=== PATIENT | female | born 1980 | race Caucasian/White ===

== ENCOUNTER 2016-08-06 21:21 | Emergency (ER) | payer OTHER ==
[~2016-08-06] VITALS: Ht 165.1 cm; Wt 164.2 kg
[~2016-08-06 21:21] MED LIST: ALBU1AER9 INH; BUSP15TA70 PO; CALC500C70 PO; CHOL20009 PO; CYCL10TA6 PO; DICL1GEL28 TOP; FLUO20CA35 PO; IMT50 PO; INDSR/60 PO; LORA-741 PO; MAGN400T6 PO; MELA3TAB12 PO; MELO7.5T5 PO; SOLI10TA2 PO; WLLXL300 PO
[2016-08-06 21:31] VITALS: TEMP 37.1; Ht 165.1 cm; Wt 164.2 kg
[2016-08-06] MEDS ORDERED: ALBUTEROL 0.5% NEB SOLN 2.5 MG/0.5 ML VIAL INH ONE (21:53)
[2016-08-06] MEDS ORDERED: ALBUT/IPRATROP 3MG/0.5MG NEB 3 ML VIAL ONE (21:54)
[2016-08-06] MEDS ORDERED: METHYLPREDNISOLONE 125 MG VIAL IV STA (22:10)
--- NOTE | 2016-08-06 22:21 | DIAGNOSTIC IMAGING REPORT ---
CHEST ONE VIEW PORTABLE CLINICAL HISTORY: Shortness of breath. COMPARISON STUDY: Chest radiograph February 23, 2009 FINDINGS: This study is mildly compromised by suboptimal penetration. Cardiac size is at the upper limits of normal. There is no pneumothorax or pleural effusion. The lungs are clear and pulmonary vascularity is normal. IMPRESSION: No acute cardiopulmonary findings. Electronically signed by: Amaury Braswell M.D. 08/06/2016 10:19 PM Dictated Date/Time: 08/06/2016 10:18 PM
[2016-08-06] MEDS ORDERED: IMT100 PO (22:29)
[2016-08-06] MEDS ORDERED: GABA1CAP4 PO (22:29)
[2016-08-06] MEDS ORDERED: BSP/5 PO (22:29)
[2016-08-06] MEDS ORDERED: AMT25 PO (22:29)
[2016-08-06] MEDS ORDERED: FLX10 PO (22:29)
[2016-08-06] MEDS ORDERED: ZPAK PO (22:29)
[2016-08-06] MEDS ORDERED: VNTHFA/IN INH (22:29)
[2016-08-06] MEDS ORDERED: PROP60CA PO (22:29)
[2016-08-06] MEDS ORDERED: ATV/1 SL (22:33)
[2016-08-06] MEDS ORDERED: CALC-585 PO (22:35)
[2016-08-06] MEDS ORDERED: B COCAP3 PO (22:35)
[2016-08-06] MEDS ORDERED: MAGN500T22 PO (22:35)
[2016-08-06] MEDS ORDERED: DOCU-94 PO (22:35)
[2016-08-06] MEDS ORDERED: OXYC1TAB3 PO (22:39)
[2016-08-06] MEDS ORDERED: IBUP-1428 PO (22:39)
[2016-08-06] MEDS ORDERED: GUAI1TAB55 PO (22:39)
[2016-08-06] MEDS ORDERED: POLY335019 PO (22:39)
[2016-08-06 22:48] LABS: HEMATOCRIT 37.5 % (37-47); MEAN CELL VOLUME 88.4 fL (80-100); MEAN CORPUSCULAR HEMOGLOBIN 28.8 pg (25-34); MEAN CORPUSCULAR HGB CONC 32.5 g/dl (32-36); MEAN PLATELET VOLUME 10.4 fL (7.4-10.4); PLATELET COUNT 294 K/uL (130-400); RED BLOOD COUNT 4.24 M/uL (4.2-5.4); WHITE BLOOD COUNT 13.46 K/uL (4.8-10.8)
[2016-08-06 23:07] LABS: BASO % 0.3 %; BASO ABS # 0.04 K/uL (0-0.2); BUN/CREATININE RATIO 15.6 (10-20); CALCIUM 9.2 mg/dl (8.5-10.1); COMPLETE YES; CREATININE 0.71 mg/dl (0.60-1.20); EOS % 2.6 %; IG% 0.3 %; LYMPH % 30.8 %; LYMPH ABS # 4.14 K/uL (1.2-3.4); POTASSIUM 4.1 mmol/L (3.5-5.1)
[2016-08-06] MEDS ORDERED: ALBUT/IPRATROP 3MG/0.5MG NEB 3 ML VIAL INH ONE (23:15)
[2016-08-07] MEDS ORDERED: HYDROCODONE/ACETAMOPHEN 5/325MG TAB PO ONE (01:00)
[2016-08-07] MEDS ORDERED: IBUPROFEN 600 MG TAB PO STA (01:00)
[2016-08-07] MEDS ORDERED: PRED20TA PO ×2 (01:01→01:19)
[2016-08-07 01:23] VITALS: BP 127/75; PULSE 115; O2SAT 97
[2016-08-07] MEDS ORDERED: HYCODAN 60ML BOTTLE HOMEPACK PO ONE (01:30)
--- NOTE | 2016-08-07 05:07 | EMERGENCY ROOM VISIT NOTE ---
History First contact with patient: 22:01 Chief Complaint: SHORTNESS OF BREATH Stated Complaint: SOB, BRONCHITIS Nursing Triage Summary: pt states she has azthma and has been sick recently as her family has been also pt states she has been at the doctors dx with bronchitis but is feeling more sob then she was History of Present Illness The patient is a 36 year old female who presents to the Emergency Room with complaints of coughing and wheezing for the past 5 or 6 days. The patient states that she has a history of asthma and is a smoker. She started having some mild coughing at the onset, but went away over the weekend 3 days ago, and her symptoms significantly worsened. She went to her family doctor's office yesterday, and was started on Zithromax. She has been using albuterol at home with only minimal improvement of symptoms. She states that today she is now having some laryngitis symptoms and more shortness of breath. She feels tight in her chest, which is similar to her previous asthma exacerbations. She does not have a fever or chills. She rates her current discomfort a 6/10. Review of Systems More than 10 systems were reviewed and otherwise negative with the exception of history of present illness. Past Medical/Surgical History Medical Problems: (1) Anxiety (2) Asthma (3) Benign hypertension (4) Depression (5) Herniated lumbar disc (6) Hyperlipidemia (7) IBS (8) Left ovarian cyst (9) Migraines (10) Urinary incontinence (11) [place] Teeth Removal Family History Cancer Social History Smoking Status: Current Every Day Smoker Alcohol Use: occasionally Drug Use: none Marital Status: Housing Status: lives with family Occupation Status: employed Current/Historical Medications Scheduled Amitriptyline HCl (Amitriptyline HCl), 75 MG PO QPM Azithromycin (Azithromycin), 1 TAB PO UD B Complex W/ C (Vitamin B Complex-C), 1 CAP PO QPM Buspirone HCl (Buspirone HCl), 5 MG PO BID Calcium Carbonate-Cholecalcife (Calcium 600 with Vitamin 600-400 mg-Unit), 1 TAB PO QPM Cholecalciferol (Vitamin D), 2,000 INTER.UNIT PO QPM Docusate Sodium (Colace), 100 MG PO BID Gabapentin (Gabapentin), 600 MG PO QPM Magnesium Oxide (mg Supplement (Magnesium Oxide), 500 MG PO QPM Prednisone (Prednisone), 0 PO DAILY Prednisone (Prednisone), 0 PO DAILY Propranolol HCl (Propranolol HCl ER), 60 MG PO QPM Scheduled PRN Albuterol Hfa (Ventolin Hfa), 2 PUFFS INH Q4-6HRS PRN for SOB/Wheezing Cyclobenzaprine HCl (Cyclobenzaprine HCl), 10 MG PO BID PRN for Muscle Spasm Guaifenesin Ext Rel (Mucinex Ext Rel), 1,200 MG PO Q12 PRN for Congestion Ibuprofen (Motrin), 800 MG PO Q8H PRN for Pain Lorazepam (Ativan), 1 MG SL Q4H PRN for Anxiety Oxycodone Immediate Rel Tab (Roxicodone Ir), 5-10 MG PO Q4H PRN for Pain Polyethylene Glycol 3350 (Miralax), 17 GM PO DAILY PRN for Constipation Sumatriptan Succinate (Imitrex), 100 MG PO UD PRN for Migraine Allergies Coded Allergies: Cephalosporins (Verified Allergy, Severe, ANAPHYLACTIC SHOCK, 09/29/15) Diphtheria Toxoid (Verified Allergy, Severe, SWELLING IN THE ARM, CELLULITIS, 09/29/15) Penicillins (Verified Allergy, Severe, ANAPHYLACTIC SHOCK, 09/29/15) Pertussis Vaccine (Verified Allergy, Severe, SWELLING IN ARM, CELLULITIS TO TDAP, 09/29/15) Sulfa Drugs (Verified Allergy, Severe, ANAPHYLACTIC SHOCK, 09/29/15) Tetanus Toxoid (Verified Allergy, Severe, SWELLING IN THE ARM, CELLULITIS , 09/29/15) Ciprofloxacin (Verified Allergy, Mild, HIVES, 09/29/15) STATES ONLY IV CIPRO Physical Exam Vital Signs Date Time Temp Pulse Resp B/P Pulse Ox O2 Delivery O2 Flow Rate FiO2 08/07/16 01:23 115 19 127/75 97 08/07/16 01:10 115 19 127/75 97 Room Air 08/06/16 22:57 90 20 118/78 100 Room Air 08/06/16 21:47 99 Room Air 08/06/16 21:31 37.1 86 20 99/57 97 Room Air Physical Exam VITALS: Vitals are noted on the nurse's note and reviewed by myself. Vital signs stable. GENERAL: Well-developed, well-nourished, white female who is speaking in short sentences. She is audibly wheezing. HEAD: Normocephalic atraumatic. HEART: Regular rate and rhythm without murmurs gallops or rubs. LUNGS: Decreased breath sounds bilateral with scattered wheezing and rhonchi ABDOMEN: Positive normal bowel sounds x 4. Soft, nontender, without masses or organomegaly. No guarding or rebound tenderness. MUSCULOSKELETAL: No muscle atrophy, erythema, or edema noted. Full range of motion without joint tenderness in all extremities. Medical Decision & Procedures ER Provider Diagnostic Interpretation: CHEST ONE VIEW PORTABLE CLINICAL HISTORY: Shortness of breath. COMPARISON STUDY: Chest radiograph February 23, 2009 FINDINGS: This study is mildly compromised by suboptimal penetration. Cardiac size is at the upper limits of normal. There is no pneumothorax or pleural effusion. The lungs are clear and pulmonary vascularity is normal. IMPRESSION: No acute cardiopulmonary findings. Laboratory Results 08/06/16 22:20 Red Blood Count 4.24, Mean Corpuscular Volume 88.4, Mean Corpuscular Hemoglobin 28.8, Mean Corpuscular Hemoglobin Concent 32.5, Mean Platelet Volume 10.4, Neutrophils (%) (Auto) 59.0, Lymphocytes (%) (Auto) 30.8, Monocytes (%) (Auto) 7.0, Eosinophils (%) (Auto) 2.6, Basophils (%) (Auto) 0.3, Neutrophils # (Auto) 7.95, Lymphocytes # (Auto) 4.14, Monocytes # (Auto) 0.94, Eosinophils # (Auto) 0.35, Basophils # (Auto) 0.04 08/06/16 22:20 Test 08/06/16 22:20 08/06/16 22:28 White Blood Count 13.46 K/uL (4.8-10.8) Red Blood Count 4.24 M/uL (4.2-5.4) Hemoglobin 12.2 g/dL (12.0-16.0) Hematocrit 37.5 % (37-47) Mean Corpuscular Volume 88.4 fL (80-100) Mean Corpuscular Hemoglobin 28.8 pg (25-34) Mean Corpuscular Hemoglobin Concent 32.5 g/dl (32-36) Platelet Count 294 K/uL (130-400) Mean Platelet Volume 10.4 fL (7.4-10.4) Neutrophils (%) (Auto) 59.0 % Lymphocytes (%) (Auto) 30.8 % Monocytes (%) (Auto) 7.0 % Eosinophils (%) (Auto) 2.6 % Basophils (%) (Auto) 0.3 % Neutrophils # (Auto) 7.95 K/uL (1.4-6.5) Lymphocytes # (Auto) 4.14 K/uL (1.2-3.4) Monocytes # (Auto) 0.94 K/uL (0.11-0.59) Eosinophils # (Auto) 0.35 K/uL (0-0.5) Basophils # (Auto) 0.04 K/uL (0-0.2) RDW Standard Deviation 45.2 fL (36.4-46.3) RDW Coefficient of Variation 13.9 % (11.5-14.5) Immature Granulocyte % (Auto) 0.3 % Immature Granulocyte # (Auto) 0.04 K/uL (0.00-0.02) Red Blood Cell Morphology Unremarkable Anion Gap 13.0 mmol/L (3-11) Est Creatinine Clear Calc Drug Dose 176.0 ml/min Estimated GFR () 128.8 Estimated GFR (Non- 111.1 BUN/Creatinine Ratio 15.6 (10-20) Calcium Level 9.2 mg/dl (8.5-10.1) Bedside Troponin I 0.000 ng/ml (0-0.045) Medications Administered Medications (Trade) Dose Ordered Sig/Evaristo Route Start Time Stop Time Status Last Admin Dose Admin Albuterol/ Ipratropium (Duoneb) 3 ml STK-MED ONCE .ROUTE 08/06/16 21:54 08/06/16 21:56 DC 08/06/16 21:54 3 ML Methylprednisolone Sodium Succinate (Solu-Medrol IV) 125 mg NOW STAT IV 08/06/16 22:10 08/06/16 22:12 DC 08/06/16 22:30 125 MG Albuterol/ Ipratropium (Duoneb) 12 ml NOW ONCE INH 08/06/16 23:15 08/06/16 23:16 DC 08/06/16 23:38 12 ML Ibuprofen (Motrin Tab) 600 mg NOW STAT PO 08/07/16 01:00 08/07/16 01:01 DC 08/07/16 01:08 600 MG Hydrocodone Bit/ Homatropine Methylb (Hycodan Elix Homepack 5/1.5MG/ 5ML) 1 [facility] UD ONCE PO 08/07/16 01:30 08/07/16 01:31 DC 08/07/16 01:[address] [facility] ED Course Physical exam and history were performed. Nursing notes and EMR were reviewed. Patient appears to have a history of asthma, tobacco use, and recent diagnosis of bronchitis. On exam she does have wheezing and rhonchi. Her lung sounds are overall tight. The patient was started on a DuoNeb. IV access was established and labs were obtained. Chest x-ray was performed. Patient was hydrated with normal saline and given 125 mg IV Solu-Medrol. The patient's blood work is as above and was reviewed. She does have a very slightly elevated white blood cell count. She does not have a significant anemia, bandemia, gross electrolyte imbalance. Chest x-ray does not show acute process. The patient did not have significant relief of symptoms after the initial DuoNeb and steroids, and was given a one-hour DuoNeb. Her troponin did come back as negative. The patient remained in stable and improving condition throughout her emergency department stay. On repeat examination of her lungs, she did significantly improved air exchange. She continued with some wheezing and coarse rhonchi. I do suspect that she has a bronchitis, and she is already on Zithromax. I'm that she continue the Zithromax. She has inhalers at home that she may continue to use. I will provide her a tapering dose of prednisone. I recommended that she follow with her primary care physician in the next few days for recheck of her condition. She was otherwise fairly invited back to the ER with any new, worsening, or concerning symptoms. The chart was completed utilizing [employer] Speech Voice Recognition Software. Grammatical errors, random word insertions, pronoun errors, and incomplete sentences are an occasional consequence of this system due to software limitations, ambient noise, and hardware issues. Any formal questions or concerns about the content, text, or information contained within the body of this dictation should be directly addressed to the provider for clarification. . Medical Decision Differential diagnosis: Etiologies such as infections, reactive airway disease, pneumonia, pneumothorax , COPD, CHF, cardiac ischemia, pulmonary embolism, musculoskeletal, gastrointestinal, as well as others were entertained. Impression Primary Impression: Acute bronchitis Departure Information Prescriptions Prednisone (Prednisone) 20 Mg Tab 0 PO DAILY, #18 TAB 3 DAILY FOR 3 DAYS, THEN 2 DAILY FOR 3 DAYS, THEN 1 DAILY FOR 3 DAYS. Prov: Thiago Mccabe PA-C 08/07/16 Prednisone (Prednisone) 20 Mg Tab 0 PO DAILY, #18 TAB 3 DAILY FOR 3 DAYS, THEN 2 DAILY FOR 3 DAYS, THEN 1 DAILY FOR 3 DAYS. Prov: Thiago Mccabe PA-C 08/07/16 Referrals Catrina Braswell M.D. (PCP) Patient Instructions [facility]
== END 2016-08-07 01:27 | disposition home or self-care (01) ==
LOC: C.EDB 21:22
DX: J20.9 Acute bronchitis, unspecified (principal); J45.909 Unspecified asthma, uncomplicated; I10 Essential (primary) hypertension; E78.5 Hyperlipidemia, unspecified; K58.9 Irritable bowel syndrome, unspecified; F17.200 Nicotine dependence, unspecified, uncomplicated

== ENCOUNTER → 2016-10-29 | Outpatient (CLI) | payer OTHER ==
[~2016-10-29] MED LIST changes: -ALBU1AER9 INH; +AMT25 PO; +ATV/1 SL; +B COCAP3 PO; +BSP/5 PO; -BUSP15TA70 PO; +CALC-585 PO; -CALC500C70 PO; +CHOL2000 PO; -CYCL10TA6 PO; -DICL1GEL28 TOP; +DOCU-94 PO; -FLUO20CA35 PO; +FLX10 PO; +FURO20TA PO; +GABA1CAP4 PO; +GUAI1TAB55 PO; +IBUP-1428 PO; +IMT100 PO; -IMT50 PO; -INDSR/60 PO; -LORA-741 PO; -MAGN400T6 PO; +MAGN500T22 PO; -MELA3TAB12 PO; -MELO7.5T5 PO; +OXYC1TAB3 PO; +POLY335019 PO; +PRED20TA PO; +PROP60CA PO; -SOLI10TA2 PO; +VNTHFA/IN INH; -WLLXL300 PO; +ZPAK PO
[2016-10-29 12:00] LABS: HEMATOCRIT 42.4 % (37-47); MEAN CELL VOLUME 90.2 fL (80-100); MEAN CORPUSCULAR HEMOGLOBIN 28.7 pg (25-34); MEAN CORPUSCULAR HGB CONC 31.8 g/dl (32-36); MEAN PLATELET VOLUME 10.4 fL (7.4-10.4); PLATELET COUNT 295 K/uL (130-400); WHITE BLOOD COUNT 9.06 K/uL (4.8-10.8)
[2016-10-29 12:23] LABS: BASO % 0.3 %; BASO ABS # 0.03 K/uL (0-0.2); COMPLETE YES; EOS % 3.2 %; IG% 0.3 %; LYMPH % 37.1 %; LYMPH ABS # 3.36 K/uL (1.2-3.4); MONO % 7.3 %; NEUT % 51.8 %
[2016-10-29 12:42] LABS: ALT/SGPT 52 U/L (12-78); AST/SGOT 25 U/L (15-37); BLOOD UREA NITROGEN 10 mg/dl (7-18); BUN/CREATININE RATIO 12.9 (10-20); CARBON DIOXIDE 29 mmol/L (21-32); CHLORIDE 104 mmol/L (98-107); CREATININE 0.78 mg/dl (0.60-1.20); GLUCOSE 91 mg/dl (70-99); POTASSIUM 4.6 mmol/L (3.5-5.1); SODIUM 139 mmol/L (136-145)
[2016-10-29 12:53] LABS: ALB/GLOB RATIO 0.8 (0.9-2); ALKALINE PHOSPHATASE 125 U/L (45-117)
== END | disposition home or self-care (01) ==
LOC: C.LABBFT 10:50
PROVIDERS: ATTEND Internal Medicine
DX: R60.9 Edema, unspecified (principal); R06.02 Shortness of breath; R07.9 Chest pain, unspecified

== ENCOUNTER → 2016-10-29 | Outpatient (CLI) | payer OTHER ==
[~2016-10-29] MED LIST changes: +OPTIRAY 320 IV PRN
--- NOTE | 2016-10-29 14:50 | DIAGNOSTIC IMAGING REPORT ---
CHEST CTA for PULMONARY ARTERIES CT DOSE: 702.29 mGy.cm HISTORY: Chest pain dyspnea TECHNIQUE: Multiaxial CT images of the chest were performed following the intravenous administration of contrast to evaluate the pulmonary arteries. Maximal intensity projection images were also obtained. COMPARISON STUDY: None. FINDINGS: There is a normal caliber thoracic aorta with no evidence for dissection. There is no evidence for pulmonary embolus. No pleural effusions. No pneumothorax. The liver and spleen are unremarkable. No mediastinal or hilar lymphadenopathy. The central airways are patent. The lungs are clear. IMPRESSION: No evidence for pulmonary embolus. The lungs are clear. Electronically signed by: Doyle Wilson M.D. 10/29/2016 2:48 PM Dictated Date/Time: 10/29/2016 2:46 PM
== END | disposition home or self-care (01) ==
LOC: C.CTS 14:29
PROVIDERS: ATTEND Internal Medicine
DX: R07.9 Chest pain, unspecified (principal); R79.89 Other specified abnormal findings of blood chemistry; R06.02 Shortness of breath

== ENCOUNTER 2016-11-06 17:04 | Emergency (ER) | payer OTHER ==
[~2016-11-06] VITALS: Ht 165.1 cm; Wt 172.0 kg
[~2016-11-06 17:04] MED LIST changes: -CHOL2000 PO; -FURO20TA PO; -OPTIRAY 320 IV PRN
[2016-11-06 17:06] VITALS: TEMP 36.8; Ht 165.1 cm; Wt 172.0 kg
[2016-11-06] MEDS ORDERED: ASPIRIN 81 MG CHEW PO STA (17:20)
[2016-11-06] MEDS ORDERED: FURO20TA PO (17:49)
[2016-11-06] MEDS ORDERED: CHOL2000 PO (17:54)
[2016-11-06 18:13] LABS: BASO % 0.3 %; BASO ABS # 0.04 K/uL (0-0.2); COMPLETE YES; EOS % 2.4 %; HEMATOCRIT 38.2 % (37-47); IG% 0.3 %; LYMPH ABS # 4.47 K/uL (1.2-3.4); MEAN CELL VOLUME 89.5 fL (80-100); MEAN CORPUSCULAR HEMOGLOBIN 29.5 pg (25-34); MEAN PLATELET VOLUME 10.2 fL (7.4-10.4); MONO % 6.4 %; NEUT % 57.6 %; PLATELET COUNT 270 K/uL (130-400); RED BLOOD COUNT 4.27 M/uL (4.2-5.4); WHITE BLOOD COUNT 13.55 K/uL (4.8-10.8)
[2016-11-06 18:26] LABS: INR 0.9 (0.9-1.1); PARTIAL THROMBOPLASTIN RATIO 1.1
[2016-11-06 18:29] LABS: ALT/SGPT 51 U/L (12-78); AST/SGOT 28 U/L (15-37); BLOOD UREA NITROGEN 13 mg/dl (7-18); BUN/CREATININE RATIO 13.7 (10-20); CALCIUM 8.9 mg/dl (8.5-10.1); CARBON DIOXIDE 27 mmol/L (21-32); CHLORIDE 103 mmol/L (98-107); CREATININE 0.93 mg/dl (0.60-1.20); GLUCOSE 116 mg/dl (70-99); POTASSIUM 3.5 mmol/L (3.5-5.1); SODIUM 138 mmol/L (136-145)
[2016-11-06 18:35] LABS: ALKALINE PHOSPHATASE 127 U/L (45-117)
[2016-11-06 18:39] LABS: PREG INTERNAL NEGATIVE QC NEG CLEAR BACKGROUND; PREG INTERNAL POSITIVE QC POS CONTROL LINE
--- NOTE | 2016-11-06 18:57 | DIAGNOSTIC IMAGING REPORT ---
CHEST 2 VIEWS ROUTINE HISTORY: Atypical CHEST PAIN COMPARISON: Chest 08/06/2016. Chest CTA 10/29/2016. FINDINGS: The lungs are clear. Cardiac silhouette is normal in size. No pleural effusions. No pneumothorax. IMPRESSION: No acute process. Electronically signed by: Keshawn Geiger M.D. 11/06/2016 6:55 PM Dictated Date/Time: 11/06/2016 6:54 PM
[2016-11-06] MEDS ORDERED: MoRPHine SULFATE 4 MG/ML 1 ML CARP\\VIAL IV STA (19:31)
--- NOTE | 2016-11-06 20:06 | EMERGENCY ROOM VISIT NOTE ---
History First contact with patient: 17:12 Chief Complaint: CARDIAC ASSESSMENT Stated Complaint: SUDDEN ONSET EDEMA, LEG PAIN, CHEST PAIN,LIGHTHEAD Nursing Triage Summary: Pt presents with stating 1 week ago went to PCP d/t leg edema. D-dimer was 680. Had CT that was neg. Placed on Lasix. Due to echo tomorrow. Came home from work and developed shooting pain in right leg with numbness, b/l leg edema. Midsternal to left sided chest pain that began on the way here, intermittent. Pt states, "It might just be my anxiety." SOB. History of Present Illness The patient is a 36 year old female who presents to the Emergency Room with complaints of chest pain, shortness of breath, bilateral lower extremity swelling. States a week ago that she developed some lower leg swelling, time she was seen by her PCP who did a d-dimer which was elevated. At that time she had this same chest pain, so they did a chest CT study which was negative for PE. Patient states her PCP placed her on Lasix for her leg swelling, which subsequently resolved. She states she has been doing well until today when she became swollen and her legs again with shooting pains in both calves. While she was driving herself to the ER, she began to have midsternal chest pain and shortness of breath, and feeling anxious. She does also remark that her mother from sudden onset of congestive heart failure in her early 50s, and states she is anxious about having the same thing happened to her. She does note that she is scheduled to have an echocardiogram done tomorrow. She denies fevers, chills, neck pain, back pain, abdominal pain, nausea/vomiting, urinary symptoms, dizziness or syncope. Review of Systems GENERAL: Denies fevers, chills, malaise, changes in weight. HEENT: Denies dizziness, visual problems, hearing loss, tinnitus. Denies difficulty swallowing or oral lesions. PULMONARY: +shortness of breath. Denies cough, sputum production or hemoptysis. CARDIOVASCULAR: + Chest pain, lower extremity edema, dyspnea on exertion. Denies palpitations. GASTROINTESTINAL: Denies diarrhea, constipation, nausea, vomiting, or abdominal pain. GENITOURINARY: Denies dysuria, frequency, urgency or nocturia. NEUROLOGIC: Denies history of epilepsy, CVA, TIA or chronic headaches. MUSCULOSKELETAL: Denies history of joint tenderness/swelling. SKIN: Denies rashes or lesions. PSYCHIATRIC: Denies history of depression or mental illness. ENDOCRINE: Denies history of diabetes, thyroid disorders, abnormal hair growth or sexual dysfunction. Past Medical/Surgical History Medical Problems: (1) Anxiety (2) Asthma (3) Benign hypertension (4) Depression (5) Herniated lumbar disc (6) Hyperlipidemia (7) IBS (8) Left ovarian cyst (9) Migraines (10) Urinary incontinence (11) [place] Teeth Removal Family History Cancer Social History Smoking Status: Current Every Day Smoker Alcohol Use: occasionally Drug Use: none Marital Status: Housing Status: lives with family Occupation Status: employed Current/Historical Medications Scheduled Amitriptyline HCl (Amitriptyline HCl), 75 MG PO QPM B Complex W/ C (Vitamin B Complex-C), 1 CAP PO QPM Buspirone HCl (Buspirone HCl), 5 MG PO BID Calcium Carbonate-Cholecalcife (Calcium 600 with Vitamin 600-400 mg-Unit), 1 TAB PO QPM Cholecalciferol (Vitamin D3), 1 CAP PO DAILY Cyclobenzaprine HCl (Cyclobenzaprine HCl), 10 MG PO BID Docusate Sodium (Colace), 100 MG PO BID Furosemide (Lasix), 20 MG PO DAILY Gabapentin (Gabapentin), 600 MG PO QPM Magnesium Oxide (mg Supplement (Magnesium Oxide), 500 MG PO QPM Propranolol HCl (Propranolol HCl ER), 60 MG PO QPM Scheduled PRN Albuterol Hfa (Ventolin Hfa), 2 PUFFS INH Q4-6HRS PRN for SOB/Wheezing Guaifenesin Ext Rel (Mucinex Ext Rel), 1,200 MG PO Q12 PRN for Congestion Ibuprofen (Motrin), 800 MG PO Q8H PRN for Pain Lorazepam (Ativan), 1 MG SL Q4H PRN for Anxiety Oxycodone Immediate Rel Tab (Roxicodone Ir), 5-10 MG PO Q4H PRN for Pain Polyethylene Glycol 3350 (Miralax), 17 GM PO DAILY PRN for Constipation Sumatriptan Succinate (Imitrex), 100 MG PO UD PRN for Migraine Allergies Coded Allergies: Cephalosporins (Verified Allergy, Severe, ANAPHYLACTIC SHOCK, 11/06/16) Diphtheria Toxoid (Verified Allergy, Severe, SWELLING IN THE ARM, CELLULITIS, 11/06/16) Penicillins (Verified Allergy, Severe, ANAPHYLACTIC SHOCK, 11/06/16) Pertussis Vaccine (Verified Allergy, Severe, SWELLING IN ARM, CELLULITIS TO TDAP, 11/06/16) Sulfa Drugs (Verified Allergy, Severe, ANAPHYLACTIC SHOCK, 11/06/16) Tetanus Toxoid (Verified Allergy, Severe, SWELLING IN THE ARM, CELLULITIS , 11/06/16) Ciprofloxacin (Verified Allergy, Mild, HIVES, 11/06/16) STATES ONLY IV CIPRO Physical Exam Vital Signs Date Time Temp Pulse Resp B/P Pulse Ox O2 Delivery O2 Flow Rate FiO2 11/06/16 21:15 114 18 112/79 97 Room Air 11/06/16 19:18 106 18 116/86 96 11/06/16 18:39 108 11/06/16 18:24 Room Air 11/06/16 18:24 Room Air 11/06/16 17:06 36.8 121 24 156/78 97 Room Air Physical Exam CONSTITUTIONAL: Anxious, mild distress with tachypnea. Alert and oriented X 4. HEENT: Normocephalic, atraumatic. Pupils equal, round and reactive to light, EOMI. NECK: Supple, full active range of motion without discomfort. RESPIRATORY: Slightly tachypneic with respiratory rate 24-26 breaths per minute. Clear to auscultation bilaterally with no wheezing, crackles, rhonchi or stridor. Diminished lung sounds bilateral bases. Equal expansion bilaterally. CARDIOVASCULAR: Tachycardia initial heart rate of 120 bpm. Regular rhythm with no murmurs, rubs or gallops. Normal peripheral perfusion. Bilateral lower extremity edema, 2+, nonpitting. GASTROINTESTINAL: Soft, nontender, nondistended. Morbidly obese. Bowel sounds present in all quadrants. MUSCULOSKELETAL: Full range of motion of all joints without discomfort. No posterior calf tenderness. No erythema, no warmth, or crepitus. INTEGUMENTARY: No rash or other significant dermatologic conditions noted. NEUROLOGIC: Cranial nerves II-XII grossly intact. No focal neurologic deficits noted. Medical Decision & Procedures ER Provider Diagnostic Interpretation: CHEST 2 VIEWS ROUTINE HISTORY: Atypical CHEST PAIN COMPARISON: Chest 08/06/2016. Chest CTA 10/29/2016. FINDINGS: The lungs are clear. Cardiac silhouette is normal in size. No pleural effusions. No pneumothorax. IMPRESSION: No acute process. BILATERAL LOWER EXTREMITY VENOUS DOPPLER HISTORY: bilateral leg swelling, elevated dimer, eval DVT COMPARISON STUDY: None. FINDINGS: There is normal compressibility, flow, and augmentation within the bilateral lower extremity deep venous systems. IMPRESSION: No DVT within the right or left lower extremity. Laboratory Results 11/06/16 17:55 Red Blood Count 4.27, Mean Corpuscular Volume 89.5, Mean Corpuscular Hemoglobin 29.5, Mean Corpuscular Hemoglobin Concent 33.0, Mean Platelet Volume 10.2, Neutrophils (%) (Auto) 57.6, Lymphocytes (%) (Auto) 33.0, Monocytes (%) (Auto) 6.4, Eosinophils (%) (Auto) 2.4, Basophils (%) (Auto) 0.3, Neutrophils # (Auto) 7.81, Lymphocytes # (Auto) 4.47, Monocytes # (Auto) 0.87, Eosinophils # (Auto) 0.32, Basophils # (Auto) 0.04 11/06/16 17:55 Test 11/06/16 17:55 White Blood Count 13.55 K/uL (4.8-10.8) Red Blood Count 4.27 M/uL (4.2-5.4) Hemoglobin 12.6 g/dL (12.0-16.0) Hematocrit 38.2 % (37-47) Mean Corpuscular Volume 89.5 fL (80-100) Mean Corpuscular Hemoglobin 29.5 pg (25-34) Mean Corpuscular Hemoglobin Concent 33.0 g/dl (32-36) Platelet Count 270 K/uL (130-400) Mean Platelet Volume 10.2 fL (7.4-10.4) Neutrophils (%) (Auto) 57.6 % Lymphocytes (%) (Auto) 33.0 % Monocytes (%) (Auto) 6.4 % Eosinophils (%) (Auto) 2.4 % Basophils (%) (Auto) 0.3 % Neutrophils # (Auto) 7.81 K/uL (1.4-6.5) Lymphocytes # (Auto) 4.47 K/uL (1.2-3.4) Monocytes # (Auto) 0.87 K/uL (0.11-0.59) Eosinophils # (Auto) 0.32 K/uL (0-0.5) Basophils # (Auto) 0.04 K/uL (0-0.2) RDW Standard Deviation 47.5 fL (36.4-46.3) RDW Coefficient of Variation 14.6 % (11.5-14.5) Immature Granulocyte % (Auto) 0.3 % Immature Granulocyte # (Auto) 0.04 K/uL (0.00-0.02) Prothrombin Time 10.0 SECONDS (9.0-12.0) Prothromb Time International Ratio 0.9 (0.9-1.1) Activated Partial Thromboplast Time 28.5 SECONDS (21.0-31.0) Partial Thromboplastin Ratio 1.1 Anion Gap 8.0 mmol/L (3-11) Est Creatinine Clear Calc Drug Dose 138.6 ml/min Estimated GFR () 92.9 Estimated GFR (Non- 80.2 BUN/Creatinine Ratio 13.7 (10-20) Calcium Level 8.9 mg/dl (8.5-10.1) Total Bilirubin 0.3 mg/dl (0.2-1) Direct Bilirubin < 0.1 mg/dl (0-0.2) Aspartate Amino Transf (AST/SGOT) 28 U/L (15-37) Alanine Aminotransferase (ALT/SGPT) 51 U/L (12-78) Alkaline Phosphatase 127 U/L (45-117) Troponin I < 0.015 ng/ml (0-0.045) Pro-B-Type Natriuretic Peptide 43 pg/ml (0-450) Total Protein 7.4 gm/dl (6.4-8.2) Albumin 3.3 gm/dl (3.4-5.0) Human Chorionic Gonadotropin, Qual NEG (NEG) Medications Administered Medications (Trade) Dose Ordered Sig/Evaristo Route Start Time Stop Time Status Last Admin Dose Admin Aspirin (Aspirin Chew) 81 mg NOW STAT PO 11/06/16 17:20 11/06/16 17:29 DC 11/06/16 18:21 81 MG Morphine Sulfate (MoRPHine SULFATE INJ) 4 mg NOW STAT IV 11/06/16 19:31 11/06/16 19:33 DC 4/26/17 20:00 4 MG Ketorolac Tromethamine (Toradol Inj) 15 mg NOW STAT IV 11/06/16 22:14 11/06/16 22:17 DC 11/06/16 22:29 15 MG ED Course Patient initial complaint on arrival of chest pain, shortness of breath, and leg swelling that started suddenly today, stating a concern for congestive heart failure. She does also state concern because she believes her mother of sudden congestive heart failure. On initial exam patient does admit to having anxiety and wonders if her symptoms can be from this. She does not complain of leg pain, and does not have calf tenderness on exam. Patient reassessed after workup complete, informed of negative EKG, troponin and BNP, and chest x-ray, all of which points away from any diagnosis of acute congestive heart failure. Pain also improved with morphine, and patient states her chest pain and shortness of breath are not bothering her now. At this point , patient states "the only reason I am here is because of the swelling and pain in my legs. That's why my PCP sent me here to figure out why I'm having swelling and pain in my legs." I discussed the option of doing venous duplex of her leg to rule out DVT, patient states she would like to have this done. Patient again reassessed after venous duplex completed, no DVT found on study. I explained to patient that, given her negative workup, she would be discharged home with plans to continue following up with her PCP, especially to keep her appointment tomorrow morning for echocardiogram. Patient states she is uncomfortable with being discharged home because she "wants to know why her legs are swelling like this." She also states "the pain in my legs is so bad that I cannot even walk." Patient requesting a second opinion. Discussed with Dr. Trivedi, who recommends consulting Hospitalist to evaluate the patient. Discussed with Dr. Barrow, who agrees to see the patient. Patient and updated on plan for hospitalist to evaluate. They state they would now like to be discharged home. I again discussed instructions and follow-up plan, as well as return criteria with the patient and her , they verbalized understanding. Pt noted to ambulate without difficulty. Medical Decision Morbidly obese patient with bilateral lower extremity swelling, nonpitting edema , seems more consistent with lymphedema. Her chest pain and shortness of breath are resolved, EKG, chest x-ray, and lab work are unremarkable and no suggestion of acute congestive heart failure. Venous duplex is negative for DVT. Patient is scheduled tomorrow for echocardiogram, which she was encouraged to keep. She was also encouraged to continue following closely with her PCP. Impression Primary Impression: Bilateral lower extremity edema Departure Information Dispostion Home / Self-Care Condition GOOD Referrals Catrina Braswell M.D. (PCP) Patient Instructions ED Leg Swelling Bilateral, [facility] Additional Instructions Follow-up with your PCP. Keep your scheduled appointment tomorrow for your echocardiogram. Continue to take your Lasix as prescribed for the swelling. You may take Tylenol or ibuprofen as needed for pain. Try to elevate your legs as much as possible throughout the day and when you're sleeping at night to help reduce swelling in your legs. Please return to the ER for worsening symptoms, including severe chest pain, shortness of breath, dizziness or passing out, fever/chills, redness or increase swelling/pain in your legs, or any other concerns.
--- NOTE | 2016-11-06 20:54 | DIAGNOSTIC IMAGING REPORT ---
BILATERAL LOWER EXTREMITY VENOUS DOPPLER HISTORY: bilateral leg swelling, elevated dimer, eval DVT COMPARISON STUDY: None. FINDINGS: There is normal compressibility, flow, and augmentation within the bilateral lower extremity deep venous systems. IMPRESSION: No DVT within the right or left lower extremity. Electronically signed by: Keshawn Geiger M.D. 11/06/2016 8:52 PM Dictated Date/Time: 11/06/2016 8:52 PM
[2016-11-06] MEDS ORDERED: KETOROLAC TROMETHAMINE 30 MG/ML VIAL IV STA (22:14)
[2016-11-06 23:03] VITALS: BP 117/68; PULSE 78; O2SAT 94
== END 2016-11-06 23:03 | disposition home or self-care (01) ==
LOC: C.EDB 17:04 → C.EDA 23:03
DX: R60.0 Localized edema (principal); F41.9 Anxiety disorder, unspecified; J45.909 Unspecified asthma, uncomplicated; I10 Essential (primary) hypertension; F32.9 Major depressive disorder, single episode, unspecified; E78.5 Hyperlipidemia, unspecified; M51.26 Other intervertebral disc displacement, lumbar region; K58.9 Irritable bowel syndrome, unspecified; F17.200 Nicotine dependence, unspecified, uncomplicated

== ENCOUNTER → 2017-07-01 | Outpatient (CLI) | payer OTHER ==
[~2017-07-01] VITALS: Ht 165.1 cm; Wt 164.9 kg
[~2017-07-01] MED LIST changes: +CHOL2000 PO; -CHOL20009 PO; +FURO20TA PO; -PRED20TA PO; -ZPAK PO
[2017-07-01 13:17] VITALS: BP 112/73; PULSE 114; Ht 165.1 cm; Wt 164.9 kg
== END | disposition home or self-care (01) ==
LOC: C.NEUR 12:47
PROVIDERS: ATTEND Internal Medicine Pulmonary Disease
DX: G47.33 Obstructive sleep apnea (adult) (pediatric) (principal); E66.01 Morbid (severe) obesity due to excess calories; R53.82 Chronic fatigue, unspecified; G47.19 Other hypersomnia; Z68.44 Body mass index [BMI] 60.0-69.9, adult

== ENCOUNTER 2017-07-25 11:04 | Inpatient (IN) | payer OTHER ==
[~2017-07-25] VITALS: Ht 165.1 cm; Wt 167.0 kg
[~2017-07-25 11:04] MED LIST changes: +DOXY1TAB6 PO
[2017-07-25] MEDS ORDERED: METHYLPREDNISOLONE 125 MG VIAL IV STA (11:29)
[2017-07-25] MEDS ORDERED: ALBUT/IPRATROP 3MG/0.5MG NEB 3 ML VIAL INH ONE (11:30)
--- NOTE | 2017-07-25 11:36 | EMERGENCY ROOM VISIT NOTE ---
History Report prepared by Rachelle: Joanie Moran Under the Supervision of: Dr. Blanco Lindsay D.O. First contact with patient: 11:23 Chief Complaint: SHORTNESS OF BREATH Stated Complaint: CAN'T BREATH, COUGHING, LIGHTHEADED Nursing Triage Summary: pt to the ED with c/o cough and SOB since last night getting worse History of Present Illness The patient is a 37 year old female who presents to the Emergency Room with complaints of persistent shortness of breath that began last night, about 12 hours ago. The patient states that she has a cold that began one week ago and chest pain that began 3 days ago. She states that she woke up several times throughout the night unable to breath. She notes she took albuterol, which did not help relieve her symptoms. The patient states she saw her PCP today, who gave her an albuterol nebulizer and suggested she come to the Emergency Department for further evaluation. She denies any leg swelling, fevers, or history of blood clots. The patient states her last normal menstrual period was 3 weeks ago. Source of History: patient Onset: last night, 12 hours Position: other (global) Quality: other (shortness of breath) Associated Symptoms: + chest pain, No fevers Review of Systems See HPI for pertinent positives & negatives. A total of 10 systems reviewed and were otherwise negative. Past Medical & Surgical Medical Problems: (1) Anxiety (2) Asthma (3) Asthma exacerbation (4) Benign hypertension (5) Depression (6) Herniated lumbar disc (7) Hyperlipidemia (8) IBS (9) Left ovarian cyst (10) Migraines (11) Urinary incontinence (12) Sleepy Eye Teeth Removal Family History Cancer Social History Smoking Status: Current Every Day Smoker Alcohol Use: occasionally Drug Use: none Marital Status: Housing Status: lives with family Occupation Status: employed Current/Historical Medications Scheduled Amitriptyline HCl (Amitriptyline HCl), 25 MG PO QPM B Complex W/ C (Vitamin B Complex-C), 1 CAP PO QPM Cholecalciferol (Vitamin D3), 2,000 UNITS PO DAILY Doxycycline Hyclate (Doxycycline Hyclate), 1 TAB PO BID Magnesium Oxide (mg Supplement (Magnesium Oxide), 500 MG PO QPM Scheduled PRN Albuterol Hfa (Ventolin Hfa), 2 PUFFS INH Q4-6HRS PRN for SOB/Wheezing Ibuprofen (Motrin), 800 MG PO Q8H PRN for Pain Polyethylene Glycol 3350 (Miralax), 17 GM PO DAILY PRN for Constipation Sumatriptan Succinate (Imitrex), 100 MG PO UD PRN for Migraine Allergies Coded Allergies: Cephalosporins (Verified Allergy, Severe, ANAPHYLACTIC SHOCK, 07/25/17) Diphtheria Toxoid (Verified Allergy, Severe, SWELLING IN THE ARM, CELLULITIS, 07/25/17) Penicillins (Verified Allergy, Severe, ANAPHYLACTIC SHOCK, 07/25/17) Pertussis Vaccine (Verified Allergy, Severe, SWELLING IN ARM, CELLULITIS TO TDAP, 07/25/17) Sulfa Antibiotics (Verified Allergy, Severe, ANAPHYLACTIC SHOCK, 07/25/17) Tetanus Toxoid (Verified Allergy, Severe, SWELLING IN THE ARM, CELLULITIS , 07/25/17) Ciprofloxacin (Verified Allergy, Mild, HIVES, 07/25/17) STATES ONLY IV CIPRO Midazolam (Unverified Allergy, Unknown, STOPPED BREATHING, 07/25/17) Physical Exam Vital Signs Date Time Temp Pulse Resp B/P (MAP) Pulse Ox O2 Delivery O2 Flow Rate FiO2 07/25/17 18:39 128 96/40 96 07/25/17 17:29 131 27 104/41 93 Room Air 07/25/17 15:34 126 22 105/41 93 Room Air 07/25/17 15:18 128 20 90/34 93 Room Air 07/25/17 13:03 126 129/75 94 Room Air 07/25/17 12:08 123 100 Nebulizer 10.0 07/25/17 12:03 119 07/25/17 12:02 115 28 100 Room Air 07/25/17 11:58 96 Room Air 07/25/17 11:13 37.0 126 22 127/82 96 Physical Exam GENERAL: Patient is awake, alert, and in no acute distress. Patient is resting comfortably and showing no signs of anxiety EYES: The conjunctivae are clear. The pupils are round and reactive. EARS, NOSE, MOUTH AND THROAT: The nose is without any evidence of any deformity. Mucous membranes are moist tongue is midline NECK: The neck is nontender and supple. RESPIRATORY: Diminished breath sounds, wheezing, and significant tachypnea. CARDIOVASCULAR: Tachycardic rate but regular rhythm. No murmurs to auscultation. GASTROINTESTINAL: The abdomen is soft. Bowel sounds are present in all quadrants. Abdomen is nontender PELVIS: The Pelvis is stable. No tenderness to palpation is noted. BACK: No midline tenderness or or step-off noted range of motion in flexion extension as well as rotation no signs of muscle spasm noted MUSCULOSKELETAL/EXTREMITIES: There is no evidence of gross deformity full range of motion is noted in the hips and shoulders SKIN: There is no obvious evidence of any rash. There are no petechiae, pallor or cyanosis noted. NEUROLOGIC: Patient is awake alert and oriented x3 strength is symmetric patellar reflexes are 2+ bilaterally Medical Decision & Procedures ER Provider Diagnostic Interpretation: Radiology results as stated below per my review and radiologist interpretation: (CHEST FOR PE) ANGIO WITH CT DOSE: 574.63 mGy.cm HISTORY: Chest pain dyspnea TECHNIQUE: Multiaxial CT images of the chest were performed following the intravenous administration of contrast to evaluate the pulmonary arteries. Maximal intensity projection images were also obtained. A dose lowering technique was utilized adhering to the principles of ALARA. COMPARISON STUDY: 10/29/2016 FINDINGS: Compromised exam due to patient body habitus, subsequent lack of resolution, and moderate patient motion. Thoracic aorta is normal in course and caliber. Central pulmonary vasculature enhances appropriately. There are no major central pulmonary emboli. The third order peripheral vasculature is suboptimally identified and is essentially nondiagnostic. Lungs are considered clear. There are no focal infiltrative changes. No evidence for pneumothorax. IMPRESSION: 1. No evidence for a major or central pulmonary embolus. 2. Lungs are clear. 3. The peripheral pulmonary vasculature is suboptimally seen due to patient body habitus and somatic motion considerations. The above report was generated using voice recognition software. It may contain grammatical, syntax or spelling errors. Electronically signed by: Doyle Wilson M.D. 07/25/2017 2:01 PM Dictated Date/Time: 07/25/2017 1:56 PM CHEST ONE VIEW PORTABLE CLINICAL HISTORY: EVALUATE RESPIRATORY DISTRESS.DYSPNEA COMPARISON STUDY: Chest CT October 29, 2016 and chest radiograph November 06, 2016. FINDINGS: Lung volumes are normal. There is no pneumothorax or pleural effusion. Interstitial prominence is unchanged. Cardiomediastinal silhouette is stable. There is no evidence for pulmonary edema. IMPRESSION: No acute cardiopulmonary findings. No change in appearance of the chest. Electronically signed by: Amaury Braswell M.D. 07/25/2017 12:13 PM Dictated Date/Time: 07/25/2017 12:12 PM Laboratory Results 07/25/17 11:55 Red Blood Count 4.54, Mean Corpuscular Volume 88.5, Mean Corpuscular Hemoglobin 28.2, Mean Corpuscular Hemoglobin Concent 31.8, Mean Platelet Volume 10.2, Neutrophils (%) (Auto) 67.3, Lymphocytes (%) (Auto) 22.2, Monocytes (%) (Auto) 7.6, Eosinophils (%) (Auto) 2.0, Basophils (%) (Auto) 0.3, Neutrophils # (Auto) 5.86, Lymphocytes # (Auto) 1.93, Monocytes # (Auto) 0.66, Eosinophils # (Auto) 0.17, Basophils # (Auto) 0.03 07/25/17 11:55 Test 07/25/17 11:55 07/25/17 12:00 White Blood Count 8.70 K/uL (4.8-10.8) Red Blood Count 4.54 M/uL (4.2-5.4) Hemoglobin 12.8 g/dL (12.0-16.0) Hematocrit 40.2 % (37-47) Mean Corpuscular Volume 88.5 fL (80-100) Mean Corpuscular Hemoglobin 28.2 pg (25-34) Mean Corpuscular Hemoglobin Concent 31.8 g/dl (32-36) Platelet Count 312 K/uL (130-400) Mean Platelet Volume 10.2 fL (7.4-10.4) Neutrophils (%) (Auto) 67.3 % Lymphocytes (%) (Auto) 22.2 % Monocytes (%) (Auto) 7.6 % Eosinophils (%) (Auto) 2.0 % Basophils (%) (Auto) 0.3 % Neutrophils # (Auto) 5.86 K/uL (1.4-6.5) Lymphocytes # (Auto) 1.93 K/uL (1.2-3.4) Monocytes # (Auto) 0.66 K/uL (0.11-0.59) Eosinophils # (Auto) 0.17 K/uL (0-0.5) Basophils # (Auto) 0.03 K/uL (0-0.2) RDW Standard Deviation 47.9 fL (36.4-46.3) RDW Coefficient of Variation 14.8 % (11.5-14.5) Immature Granulocyte % (Auto) 0.6 % Immature Granulocyte # (Auto) 0.05 K/uL (0.00-0.02) Prothrombin Time 10.0 SECONDS (9.0-12.0) Prothromb Time International Ratio 1.0 (0.9-1.1) Activated Partial Thromboplast Time 28.5 SECONDS (21.0-31.0) Partial Thromboplastin Ratio 1.1 Anion Gap 8.0 mmol/L (3-11) Est Creatinine Clear Calc Drug Dose 148.5 ml/min Estimated GFR () 104.4 Estimated GFR (Non- 90.0 BUN/Creatinine Ratio 15.1 (10-20) Calcium Level 9.1 mg/dl (8.5-10.1) Total Bilirubin 0.3 mg/dl (0.2-1) Aspartate Amino Transf (AST/SGOT) 31 U/L (15-37) Alanine Aminotransferase (ALT/SGPT) 56 U/L (12-78) Alkaline Phosphatase 130 U/L (45-117) Troponin I < 0.015 ng/ml (0-0.045) Total Protein 7.8 gm/dl (6.4-8.2) Albumin 3.3 gm/dl (3.4-5.0) Globulin 4.5 gm/dl (2.5-4.0) Albumin/Globulin Ratio 0.7 (0.9-2) Human Chorionic Gonadotropin, Qual NEG (NEG) Bedside D-Dimer > 450 ng/mlFEU (0-450) Laboratory results per my review. Medications Administered Medications (Trade) Dose Ordered Sig/Evaristo Route Start Time Stop Time Status Last Admin Dose Admin Albuterol/ Ipratropium (Duoneb) 12 ml ONE ONCE INH 07/25/17 11:30 07/25/17 11:31 DC 07/25/17 12:02 12 ML Methylprednisolone Sodium Succinate (Solu-Medrol IV) 125 mg NOW STAT IV 07/25/17 11:29 07/25/17 11:31 DC 07/25/17 12:06 125 MG Sodium Chloride 1,000 ml @ 999 mls/hr Q1H1M STAT IV 07/25/17 12:55 07/25/17 13:55 DC 07/25/17 12:55 999 MLS/HR Azithromycin (Zithromax Tab) 500 mg NOW STAT PO 07/25/17 15:53 07/25/17 15:54 DC 07/25/17 16:06 500 MG Albuterol/ Ipratropium (Duoneb) 3 ml NOW STAT INH 07/25/17 16:03 07/25/17 16:04 DC 07/25/17 16:08 3 ML Magnesium Sulfate 1 gm/Prmx 100 ml @ 100 mls/hr Q1H IV 07/25/17 17:15 07/25/17 19:14 07/25/17 18:34 100 MLS/HR Ibuprofen (Motrin Tab) 800 mg NOW ONCE PO 07/25/17 17:15 07/25/17 17:16 DC 07/25/17 17:19 800 MG ECG Indication: SOB/dyspnea Rate (beats per minute): 121 Rhythm: sinus tachycardia Findings: no acute ischemic change, no ectopy Change: no significant change (11/06/16) ED Course 1128: The patient was evaluated in room C11. A complete history and physical examination were performed. 1129: Ordered Solu-Medrol IV 125mg. 1130: Ordered Duoneb 12ml INH. 1255: Ordered Sodium Chloride 1000ml @ 999mls/hr IV. 1312: I reevaluated the patient, who was resting comfortably. 1428: Upon reevaluation, the patient is resting comfortably. I discussed the results and treatment plan with her. Medical Decision Prior records/ancillary studies reviewed. Triage Nursing notes reviewed. The patient's history was concerning for respiratory difficulties. Differential diagnosis: Etiologies such as infections, reactive airway disease, pneumonia, pneumothorax , COPD, CHF, cardiac ischemia, pulmonary embolism, musculoskeletal, gastrointestinal, as well as others were entertained. The patient is a 37-year-old female who presented to the emergency department from her primary care physician's office for treatment. The patient's been having a cough and also has a history of bronchospasm. The patient was having significant tachypnea upon arrival. She was treated with an hour-long nebulizer and IV steroids. Her condition did not improve significantly. I discussed the patient's laboratory and radiographic studies with her. Because of her ongoing symptoms I also discussed his case with the on-call [facility] hospitalist. Her chest CT did not reveal any acute pulmonary embolism or acute infiltrate. This appears to be more consistent with her underlying bronchospasm however there could also be some degree of bronchitis that she was treated with IV steroids and antibiotics as well. On subsequent reevaluation she was somewhat improved but still had very significant dyspnea. Medication Reconcilliation Current Medication List: was personally reviewed by me Impression Primary Impression: Acute bronchitis Additional Impressions: Tachycardia Asthma with exacerbation Scribe Attestation The scribe's documentation has been prepared under my direction and personally reviewed by me in its entirety. I confirm that the note above accurately reflects all work, treatment, procedures, and medical decision making performed by me. Departure Information Dispostion Home / Self-Care Referrals Catrina Braswell M.D. (PCP) Forms HOME CARE DOCUMENTATION FORM, IMPORTANT VISIT INFORMATION Patient Instructions My [facility] Health Problem Qualifiers Primary Impression: Acute bronchitis Bronchitis organism: unspecified organism Qualified Codes: J20.9 - Acute bronchitis, unspecified Additional Impressions: Asthma with exacerbation Asthma severity: severe Asthma persistence: persistent Qualified Codes: J45.51 - Severe persistent asthma with (acute) exacerbation
[2017-07-25 12:02] VITALS: PULSE 115; O2SAT 100
[2017-07-25 12:11] LABS: BASO % 0.3 %; BASO ABS # 0.03 K/uL (0-0.2); EOS ABS # 0.17 K/uL (0-0.5); HEMATOCRIT 40.2 % (37-47); HEMOGLOBIN 12.8 g/dL (12.0-16.0); IG# 0.05 K/uL (0.00-0.02); LYMPH % 22.2 %; LYMPH ABS # 1.93 K/uL (1.2-3.4); MEAN CELL VOLUME 88.5 fL (80-100); MEAN CORPUSCULAR HEMOGLOBIN 28.2 pg (25-34); MEAN CORPUSCULAR HGB CONC 31.8 g/dl (32-36); MEAN PLATELET VOLUME 10.2 fL (7.4-10.4); MONO % 7.6 %; MONO ABS # 0.66 K/uL (0.11-0.59); NEUT % 67.3 %; NEUT ABS # 5.86 K/uL (1.4-6.5); PLATELET COUNT 312 K/uL (130-400); RED CELL DISTRIBUTION WIDTH CV 14.8 % (11.5-14.5); RED CELL DISTRIBUTION WIDTH SD 47.9 fL (36.4-46.3)
--- NOTE | 2017-07-25 12:14 | DIAGNOSTIC IMAGING REPORT ---
CHEST ONE VIEW PORTABLE CLINICAL HISTORY: EVALUATE RESPIRATORY DISTRESS.DYSPNEA COMPARISON STUDY: Chest CT October 29, 2016 and chest radiograph November 06, 2016. FINDINGS: Lung volumes are normal. There is no pneumothorax or pleural effusion. Interstitial prominence is unchanged. Cardiomediastinal silhouette is stable. There is no evidence for pulmonary edema. IMPRESSION: No acute cardiopulmonary findings. No change in appearance of the chest. Electronically signed by: Amaury Braswell M.D. 07/25/2017 12:13 PM Dictated Date/Time: 07/25/2017 12:12 PM
[2017-07-25 12:17] LABS: PTT PATIENT 28.5 SECONDS (21.0-31.0)
[2017-07-25 12:27] LABS: ALBUMIN 3.3 gm/dl (3.4-5.0); ALT/SGPT 56 U/L (12-78); BLOOD UREA NITROGEN 13 mg/dl (7-18); CALCIUM 9.1 mg/dl (8.5-10.1); CARBON DIOXIDE 26 mmol/L (21-32); CREATININE 0.84 mg/dl (0.60-1.20); GLUCOSE 97 mg/dl (70-99); SODIUM 136 mmol/L (136-145)
[2017-07-25 12:32] LABS: ALKALINE PHOSPHATASE 130 U/L (45-117); AST/SGOT 31 U/L (15-37); TOTAL PROTEIN 7.8 gm/dl (6.4-8.2)
[2017-07-25] MEDS ORDERED: SODIUM CHLORIDE 0.9% 1000ML 1,000 ML IV STA (12:55)
--- NOTE | 2017-07-25 14:02 | DIAGNOSTIC IMAGING REPORT ---
(CHEST FOR PE) ANGIO WITH CT DOSE: 574.63 mGy.cm HISTORY: Chest pain dyspnea TECHNIQUE: Multiaxial CT images of the chest were performed following the intravenous administration of contrast to evaluate the pulmonary arteries. Maximal intensity projection images were also obtained. A dose lowering technique was utilized adhering to the principles of ALARA. COMPARISON STUDY: 10/29/2016 FINDINGS: Compromised exam due to patient body habitus, subsequent lack of resolution, and moderate patient motion. Thoracic aorta is normal in course and caliber. Central pulmonary vasculature enhances appropriately. There are no major central pulmonary emboli. The third order peripheral vasculature is suboptimally identified and is essentially nondiagnostic. Lungs are considered clear. There are no focal infiltrative changes. No evidence for pneumothorax. IMPRESSION: 1. No evidence for a major or central pulmonary embolus. 2. Lungs are clear. 3. The peripheral pulmonary vasculature is suboptimally seen due to patient body habitus and somatic motion considerations. The above report was generated using voice recognition software. It may contain grammatical, syntax or spelling errors. Electronically signed by: Doyle Wilson M.D. 07/25/2017 2:01 PM Dictated Date/Time: 07/25/2017 1:56 PM
[2017-07-25] MEDS ORDERED: AZITHROMYCIN 250 MG TAB PO STA (15:53)
[2017-07-25] MEDS ORDERED: ALBUT/IPRATROP 3MG/0.5MG NEB 3 ML VIAL INH STA (16:03)
[2017-07-25] MEDS ORDERED: POLYETHYLENE (MIRALAX) 17 GM PACK PO PRN (17:00)
[2017-07-25] MEDS ORDERED: MAGNESIUM HYDROXIDE SUSP 30 ML UDC PO PRN (17:00)
[2017-07-25] MEDS ORDERED: ONDANSETRON INJ 2 MG/ML 2 ML VIAL IV PRN (17:00)
[2017-07-25] MEDS ORDERED: ALUMINUM/MAGNESIUM/SIMETH (MAALOX MAX) 30 ML UDC PO PRN (17:00)
[2017-07-25] MEDS ORDERED: IBUPROFEN 800 MG TAB PO ONE (17:15)
[2017-07-25] MEDS ORDERED: SUMATRIPTAN SUCC TAB 100 MG TAB PO PRN (17:15)
[2017-07-25] MEDS ORDERED: IBUPROFEN 800 MG TAB PO PRN (17:15)
--- NOTE | 2017-07-25 17:29 | History and Physical ---
History & Physical Date & Time of Service: Jul 25, 2017 at 17:07 Chief Complaint: Can't Breath, Coughing, Lightheaded Primary Care Physician: Catrina Braswell M.D. History of Present Illness Source: patient, spouse, clinic records, hospital records This is a 37 y/o female with a history of asthma, anxiety, fibromyalgia, HTN, CELINA, and PCOS who presented to the ED on 07/25 with progressive shortness of breath and cough. The patient has a history of mild, intermittent asthma and does not take any maintenance medication. Prior to this illness, she had not needed her albuterol rescue inhaler for years. She states that developed a cold about one week ago with congestion and low grade fevers, but she felt much better after a few days. Yesterday she developed a dry cough and progressively worsening shortness of breath. She states that her coughing is so severe that she is starting to develop chest tightness with it. She is unable to take a deep breath. She was not able to sleep much last night as she kept waking up feeling like she couldn't breathe. The patient also complains of some nausea. She states that she did not have any fevers at home, but in the ED did experience chills and then sweats. She feels generally weak and fatigued but denies myalgias. The patient denies fevers, palpitations, claudication, wheezing, vomiting, abdominal pain, dysuria, hematuria, urinary retention, paralysis, weakness, new/different numbness and tingling. Past Medical/Surgical History Medical Problems: (1) Anxiety Status: Chronic (2) Mild intermittent asthma Status: Chronic (3) Benign hypertension Status: Chronic (4) Depression Status: Chronic (5) Herniated lumbar disc Status: Chronic (6) Hyperlipidemia Status: Chronic (7) IBS Status: Chronic (8) Left ovarian cyst Status: Chronic (9) Migraines Status: Chronic (10) Urinary incontinence Status: Chronic (11) [place] Teeth Removal Status: Resolved PCOS Fibromyalgia CELINA Family History Cancer (breast, colon) Diabetes mellitus Hypertension Social History Smoking Status: Current Every Day Smoker (1/2 to 3/4 ppd) Smokeless Tobacco Use: No Alcohol Use: none Drug Use: none Marital Status: Housing status: lives with family ( and daughter) Occupational Status: employed (history department chair professional development instructor) Immunizations History of Influenza Vaccine: Unknown History of Tetanus Vaccine?: Unknown Multi-Drug Resistant Organisms History of MDRO: No Allergies Coded Allergies: Cephalosporins (Verified Allergy, Severe, ANAPHYLACTIC SHOCK, 07/25/17) Diphtheria Toxoid (Verified Allergy, Severe, SWELLING IN THE ARM, CELLULITIS, 07/25/17) Penicillins (Verified Allergy, Severe, ANAPHYLACTIC SHOCK, 07/25/17) Pertussis Vaccine (Verified Allergy, Severe, SWELLING IN ARM, CELLULITIS TO TDAP, 07/25/17) Sulfa Antibiotics (Verified Allergy, Severe, ANAPHYLACTIC SHOCK, 07/25/17) Tetanus Toxoid (Verified Allergy, Severe, SWELLING IN THE ARM, CELLULITIS , 07/25/17) Ciprofloxacin (Verified Allergy, Mild, HIVES, 07/25/17) STATES ONLY IV CIPRO Midazolam (Unverified Allergy, Unknown, STOPPED BREATHING, 07/25/17) Home Medications Scheduled Amitriptyline HCl (Amitriptyline HCl), 25 MG PO QPM B Complex W/ C (Vitamin B Complex-C), 1 CAP PO QPM Cholecalciferol (Vitamin D3), 2,000 UNITS PO DAILY Doxycycline Hyclate (Doxycycline Hyclate), 1 TAB PO BID Magnesium Oxide (mg Supplement (Magnesium Oxide), 500 MG PO QPM Scheduled PRN Albuterol Hfa (Ventolin Hfa), 2 PUFFS INH Q4-6HRS PRN for SOB/Wheezing Ibuprofen (Motrin), 800 MG PO Q8H PRN for Pain Polyethylene Glycol 3350 (Miralax), 17 GM PO DAILY PRN for Constipation Sumatriptan Succinate (Imitrex), 100 MG PO UD PRN for Migraine Review of Systems Constitutional: +Chills, sweats. Generally weak and fatigued. No fever Eyes: No worsening of vision, No eye pain, No diplopia ENT: No hearing loss, No nasal symptoms, No trouble swallowing Respiratory: +Cough, shortness of breath. No wheezing Cardiovascular: +Chest tightness w/coughing. No claudication, No palpitations Abdomen: +Nausea. No pain, No vomiting Musculoskeletal: No joint pain, No muscle pain, No swelling Genitourinary - Female: +Stress incontinenceNo dysuria, No urinary retention, No hematuria Neurologic: No paralysis, No weakness, No numbness/tingling Integumentary: No rash, No itch, No color change Physical Exam Vital Signs Date Time Temp Pulse Resp B/P (MAP) Pulse Ox O2 Delivery O2 Flow Rate FiO2 07/25/17 15:34 126 22 105/41 93 Room Air 07/25/17 15:18 128 20 90/34 93 Room Air 07/25/17 13:03 126 129/75 94 Room Air 07/25/17 12:08 123 100 Nebulizer 10.0 07/25/17 12:03 119 07/25/17 12:02 115 28 100 Room Air 07/25/17 11:58 96 Room Air 07/25/17 11:13 37.0 126 22 127/82 96 General appearance: +Morbidly obese. Well-developed, well-nourished, no apparent distress Head: Normocephalic, atraumatic Eyes: Normal inspection, PERRL, EOMI ENT: Normal ENT inspection, hearing grossly normal, pharynx normal Neck: Supple, no JVD, trachea midline Respiratory/Chest: +Appears dyspneic. Tachypneic. Poor air movement, lungs very tight. Lungs clear to auscultation, no respiratory distress Cardiovascular: +Tachycardic. Regular rhythm, no gallop, no murmur Abdomen/GI: Normal bowel sounds, non-tender, soft Extremities/Musculoskeletal: Normal inspection, no calf tenderness, no pedal edema Neurological/Psych: Alert, normal mood/affect, oriented x 3 Skin: Normal color, warm/dry, no rash Diagnostics Laboratory Results Results Past 24 Hours Test 07/25/17 11:55 07/25/17 12:00 Range/Units White Blood Count 8.70 4.8-10.8 K/uL Red Blood Count 4.54 4.2-5.4 M/uL Hemoglobin 12.8 12.0-16.0 g/dL Hematocrit 40.2 37-47 % Mean Corpuscular Volume 88.5 80-100 fL Mean Corpuscular Hemoglobin 28.2 25-34 pg Mean Corpuscular Hemoglobin Concent 31.8 32-36 g/dl Platelet Count 312 130-400 K/uL Mean Platelet Volume 10.2 7.4-10.4 fL Neutrophils (%) (Auto) 67.3 % Lymphocytes (%) (Auto) 22.2 % Monocytes (%) (Auto) 7.6 % Eosinophils (%) (Auto) 2.0 % Basophils (%) (Auto) 0.3 % Neutrophils # (Auto) 5.86 1.4-6.5 K/uL Lymphocytes # (Auto) 1.93 1.2-3.4 K/uL Monocytes # (Auto) 0.66 0.11-0.59 K/uL Eosinophils # (Auto) 0.17 0-0.5 K/uL Basophils # (Auto) 0.03 0-0.2 K/uL RDW Standard Deviation 47.9 36.4-46.3 fL RDW Coefficient of Variation 14.8 11.5-14.5 % Immature Granulocyte % (Auto) 0.6 % Immature Granulocyte # (Auto) 0.05 0.00-0.02 K/uL Prothrombin Time 10.0 9.0-12.0 SECONDS Prothromb Time International Ratio 1.0 0.9-1.1 Activated Partial Thromboplast Time 28.5 21.0-31.0 SECONDS Partial Thromboplastin Ratio 1.1 Sodium Level 136 136-145 mmol/L Potassium Level 4.0 3.5-5.1 mmol/L Chloride Level 102 98-107 mmol/L Carbon Dioxide Level 26 21-32 mmol/L Anion Gap 8.0 3-11 mmol/L Blood Urea Nitrogen 13 7-18 mg/dl Creatinine 0.84 0.60-1.20 mg/dl Est Creatinine Clear Calc Drug Dose 148.5 ml/min Estimated GFR () 104.4 Estimated GFR (Non- 90.0 BUN/Creatinine Ratio 15.1 10-20 Random Glucose 97 70-99 mg/dl Calcium Level 9.1 8.5-10.1 mg/dl Total Bilirubin 0.3 0.2-1 mg/dl Aspartate Amino Transf (AST/SGOT) 31 15-37 U/L Alanine Aminotransferase (ALT/SGPT) 56 12-78 U/L Alkaline Phosphatase 130 45-117 U/L Troponin I < 0.015 0-0.045 ng/ml Total Protein 7.8 6.4-8.2 gm/dl Albumin 3.3 3.4-5.0 gm/dl Globulin 4.5 2.5-4.0 gm/dl Albumin/Globulin Ratio 0.7 0.9-2 Human Chorionic Gonadotropin, Qual NEG NEG Bedside D-Dimer > 450 0-450 ng/mlFEU Diagnostic Radiology Reviewed the following studies and agree with interpretation as follows: CHEST ONE VIEW PORTABLE CLINICAL HISTORY: EVALUATE RESPIRATORY DISTRESS.DYSPNEA COMPARISON STUDY: Chest CT October 29, 2016 and chest radiograph November 06, 2016. FINDINGS: Lung volumes are normal. There is no pneumothorax or pleural effusion. Interstitial prominence is unchanged. Cardiomediastinal silhouette is stable. There is no evidence for pulmonary edema. IMPRESSION: No acute cardiopulmonary findings. No change in appearance of the chest. (CHEST FOR PE) ANGIO WITH CT DOSE: 574.63 mGy.cm HISTORY: Chest pain dyspnea TECHNIQUE: Multiaxial CT images of the chest were performed following the intravenous administration of contrast to evaluate the pulmonary arteries. Maximal intensity projection images were also obtained. A dose lowering technique was utilized adhering to the principles of ALARA. COMPARISON STUDY: 10/29/2016 FINDINGS: Compromised exam due to patient body habitus, subsequent lack of resolution, and moderate patient motion. Thoracic aorta is normal in course and caliber. Central pulmonary vasculature enhances appropriately. There are no major central pulmonary emboli. The third order peripheral vasculature is suboptimally identified and is essentially nondiagnostic. Lungs are considered clear. There are no focal infiltrative changes. No evidence for pneumothorax. IMPRESSION: 1. No evidence for a major or central pulmonary embolus. 2. Lungs are clear. 3. The peripheral pulmonary vasculature is suboptimally seen due to patient body habitus and somatic motion considerations. EKG Reviewed EKG and agree with interpretation as follows: 121 bpm, sinus tachycardia Impression Assessment and Plan 37 y/o female with a history of asthma, anxiety, fibromyalgia, HTN, CELINA, and PCOS who presented to the ED on 07/25 with progressive shortness of breath and cough. Pt arrived afebrile. Tachycardic, tachypneic. BP stable on arrival but then became hypotensive. CXR shows no acute disease. CTA chest negative for PE, no acute disease. EKG no ischemic changes. Positive d-dimer, labs otherwise grossly unremarkable. Pt received loading dose Solu-Medrol 125 mg IV x1, hour long DuoNeb, 1L NSS bolus and azithromycin 500 mg PO in ED. Asthma exacerbation, h/o mild intermittent asthma--unclear cause, pt's asthma had been very well controlled w/o any maintenance medications -Admit to telemetry given tachycardia and hypotension -Solu-Medrol 60 mg IV q12h -Xopenex/Atrovent nebs QIDR and q2h prn SOB/wheezing -No improvement even after hour long DuoNeb. Will try magnesium sulfate 2 gm IV x 1 -Check rapid flu Recent boil left buttock -Being treated as an outpt w/doxy, continue outpt course with doxycycline 100 mg PO BID x 3 more days H/o anxiety--has not used Ativan for 6 months Fibromyalgia -Continue amitriptyline 25 mg PO hs H/o HTN--pt recently taken off her propranolol as BP has been well controlled as outpatient -Currently hypotensive, continue to monitor CELINA--was diagnosed during her but then was told she did not need CPAP after she delivered. Notes increasing daytime fatigue and has outpt sleep study scheduled -CPAP at night PCOS--stable, no recent issues Migraine -Ibuprofen prn, Imitrex prn DVT prophylaxis -Enoxaparin 40 mg SC q24h -YVAN muller and RODERICKs Code Status -Level I, FULL RESUSCITATION STATUS Level of Care Telemetry Resuscitation Status FULL RESUSCITATION VTE Prophylaxis VTE Risk Assessment Done? Y/N: Yes Risk Level: Moderate Given or contraindicated: Enoxaparin (Lovenox)SQ, T.E.D. Stockings, SCD's Reviewed: Pt Seen/Exam by Me Reviewed: Pt Seen/Exam by Me History Pt with ongoing SOB. She does feel improved with O2. Her heart feels like it is racing s/p multiple neb tx today. She states her asthma has been well controlled for years. She has a home rescue inhaler that she has not used in so long she had to get a new one as it had . She has had a cough and SOB. Her started to have a cough today, but no one else is sick. She is a smoker but was coughing so much she could only smoke 1 cigarette today. No chest pain. Pt states that when she had intense heart racing in the past related to albuterol use, she was given ativan and it helped. She is requesting this now as the heart racing is causing her head to pound. No feelings of skipped beats. Agree with HPI/ROS as noted by PA. General Appearance: moderate distress (cough, SOB), obese Respiratory: lungs clear, respiratory distress, decreased breath sounds Cardiovascular: normal peripheral pulses, no edema, tachycardia Gastrointestinal: non tender, soft Extremities: non-tender, no pedal edema Neurologic/Psychiatric: alert, normal mood/affect, oriented x 3 Skin Characteristics: normal color, warm/dry Assessment/Plan Agree with plan as outlined above Hx of well controlled asthma in a morbidly obese current smoker, likely asthma exacerbation due to URI that was made worse by these factors CXR neg Has been on doxy for a buttock cellulitis which should have covered if PNA present CTA neg WBC WNL, afebrile Hold on further abx, but will continue home doxy Nebs to xopenex given symptomatic tachycardia, ativan for this at pt request Flu swab pending Could also be allergies, however cough sounds more viral
[2017-07-25] MEDS: MAGNESIUM SULFATE 1GM / D5W 1 GM in PREMIXED IN D5W 100 ML IV SCH ×2 (17:30→18:34)
[2017-07-25] MEDS ORDERED: LORAZEPAM 2 MG/ML 1 ML VIAL IV STA (19:37)
[2017-07-25 19:39] VITALS: BP_SYST 107; BP_SYST 139; BP_DIAS 54; BP_DIAS 65; PULSE 126; PULSE 81; TEMP 36.6; O2SAT 95; Ht 165.1 cm; Wt 167.0 kg
[2017-07-25] MEDS ORDERED: LEVALBUTEROL/IPRATROPIUM NEB INH SCH (20:00)
[2017-07-25] MEDS: SODIUM CHLORIDE 0.9% 1000ML 1,000 ML IV SCH (20:13)
[2017-07-25] MEDS: IPRATROPIUM BROMIDE NEB SOLN 0.02% 2.5 ML VIAL INH SCH (21:33)
[2017-07-25 21:34] LABS: INFLUENZA B ANTIGEN Neg for Influ B (NEG)
[2017-07-25] MEDS: LEVALBUTEROL 1.25MG/0.5ML NEB INH SCH (21:34)
[2017-07-25 21:36] VITALS: PULSE 119; O2SAT 95
[2017-07-25] MEDS: AMITRIPTYLINE HCL 25 MG TAB PO SCH (21:46)
[2017-07-25] MEDS: DOXYCYCLINE HYCLATE 100 MG CAP PO SCH (21:47)
[2017-07-25] MEDS: VITAMIN B COMPLEX TAB PO SCH (21:47)
[2017-07-25] MEDS: ENOXAPARIN 40 MG/0.4 ML SYR SC SCH (21:48)
[2017-07-25] MEDS: METHYLPREDNISOLONE IV 60 MG in SYRINGE 0 ML IV SCH (23:23)
[2017-07-25] MEDS: DEXTROMETHORPHAN POLYMR COMPLX 30 MG/5 ML UDP PO PRN (23:23)
[2017-07-26] VITALS (14 sets, daily range): BP systolic 109–158; BP diastolic 63–85; PULSE 91–122; TEMP 36.4–37.1; O2SAT 94–98
[2017-07-26 06:09] LABS: HEMATOCRIT 37.1 % (37-47); MEAN CELL VOLUME 89.2 fL (80-100); MEAN CORPUSCULAR HEMOGLOBIN 28.8 pg (25-34); MEAN CORPUSCULAR HGB CONC 32.3 g/dl (32-36); MEAN PLATELET VOLUME 10.3 fL (7.4-10.4); PLATELET COUNT 282 K/uL (130-400); RED CELL DISTRIBUTION WIDTH CV 15.1 % (11.5-14.5); RED CELL DISTRIBUTION WIDTH SD 48.7 fL (36.4-46.3)
[2017-07-26 06:44] LABS: CALCIUM 8.3 mg/dl (8.5-10.1); CREATININE 0.62 mg/dl (0.60-1.20); POTASSIUM 4.4 mmol/L (3.5-5.1)
[2017-07-26] MEDS: LEVALBUTEROL 1.25MG/0.5ML NEB INH SCH ×4 (06:59→20:24)
[2017-07-26] MEDS: IPRATROPIUM BROMIDE NEB SOLN 0.02% 2.5 ML VIAL INH SCH ×4 (06:59→20:24)
[2017-07-26] MEDS: SODIUM CHLORIDE 0.9% 1000ML 1,000 ML IV SCH ×2 (09:15→22:59)
[2017-07-26] MEDS: DOXYCYCLINE HYCLATE 100 MG CAP PO SCH ×2 (09:18→21:14)
[2017-07-26] MEDS: CHOLECALCIFEROL 1000 INTER.UNIT TAB PO SCH (09:19)
[2017-07-26] MEDS: METHYLPREDNISOLONE IV 60 MG in SYRINGE 0 ML IV SCH (12:31)
[2017-07-26] MEDS: DEXTROMETHORPHAN POLYMR COMPLX 30 MG/5 ML UDP PO PRN ×2 (12:33→22:07)
--- NOTE | 2017-07-26 13:10 | Hospitalist Progress Note ---
Hospitalist Progress Note Date of Service Jul 26, 2017. (Maci Gu ., PA-C) Subjective Pt evaluation today including: conversation w/ patient, physical exam, lab review, review of studies, review of inpatient medication list Voiding: no voiding problems Patient resting in bed. Eating and drinking OK. +SOB- seems slightly improved since admission. Mild SOB noted with speaking. On RA during conversation. +non-productive cough. Notes her pulse rate is usually low 100s- has been increased since admission after receiving nebulizers. Notes she is to have outpatient sleep study next week. States she was once diagnosed w/ CELINA but never got CPAP- now to have study to determine settings has noted episodes of apnea during the night per patient Slept well last night with CPAP machine Patient denies any fever, chills, sweats, lightheadedness, dizziness, vision changes, CP, palpitations, edema, wheezing, abdominal pain, nausea, vomiting, diarrhea, urinary symptoms, melena, numbness/tingling, weakness, muscle/joint pain, anxiety/depression, active bleeding, or new skin discoloration/changes. (Maci Gu ., PA-C) Medications Current Inpatient Medications Medications (Trade) Dose Ordered Sig/Evaristo Route Start Time Stop Time Status Last Admin Dose Admin Enoxaparin Sodium (Lovenox Inj) 40 mg Q24H SC 07/25/17 21:00 08/24/17 20:59 07/25/17 21:48 40 MG Al Hydrox/Mg Hydrox/Simethicone (Maalox Max Susp) 15 ml Q4H PRN PO 07/25/17 17:00 08/24/17 16:59 Magnesium Hydroxide (Milk Of Magnesia Susp) 30 ml Q12H PRN PO 07/25/17 17:00 08/24/17 16:59 Ondansetron HCl (Zofran Inj) 4 mg Q6H PRN IV 07/25/17 17:00 08/24/17 16:59 Polyethylene (Miralax Powder Packet) 17 gm DAILY PRN PO 07/25/17 17:00 08/24/17 16:59 Methylprednisolone Sodium Succinate 60 mg/Syringe 0.96 ml @ 1.5 mls/min Q12H IV 07/26/17 00:00 08/25/17 00:00 07/25/17 23:23 1.5 MLS/MIN Amitriptyline HCl (Elavil Tab) 25 mg QPM PO 07/25/17 21:00 08/24/17 20:59 07/25/17 21:46 25 MG Ibuprofen (Motrin Tab) 800 mg Q8H PRN PO 07/25/17 17:15 08/24/17 17:14 Sumatriptan Succinate (Imitrex Tab) 100 mg UD PRN PO 07/25/17 17:15 08/24/17 17:14 Vitamin B Complex (Vitamin B Complex) 1 tab HS PO 07/25/17 21:00 08/24/17 20:59 07/25/17 21:47 1 TAB Cholecalciferol (Vitamin D Tab) 2,000 inter.unit QAM PO 07/26/17 09:00 08/25/17 08:59 07/26/17 09:19 2,000 INTER.UNIT Doxycycline Hyclate (Vibramycin Cap) 100 mg BID PO 07/25/17 21:00 07/28/17 20:59 07/26/17 09:18 100 MG Sodium Chloride 1,000 ml @ 80 mls/hr [id number] IV 07/25/17 20:00 08/24/17 19:59 07/26/17 09:15 80 MLS/HR Ipratropium Cactus (Atrovent 0.02% 0.5MG/2.5ML Neb) 0.5 mg QIDR INH 07/25/17 20:00 08/24/17 19:59 07/26/17 06:59 0.5 MG Levalbuterol (Xopenex 1.25MG/ 0.5ML Neb) 1.25 mg QIDR INH 07/25/17 20:00 08/24/17 19:59 07/26/17 06:59 1.25 MG Dextromethorphan Polymer Complex (Delsym Susp) 30 mg Q8H PRN PO 07/25/17 22:00 08/24/17 21:59 07/25/17 23:23 30 MG (Maci Gu, [place]) Objective Vital Signs Date Time Temp Pulse Resp B/P (MAP) Pulse Ox O2 Delivery O2 Flow Rate FiO2 07/26/17 07:27 36.4 92 20 132/72 (92) 98 BiPAP 07/26/17 06:59 91 16 94 BiPAP/CPAP 21 07/26/17 04:29 36.5 103 20 138/73 (94) 94 BiPAP 07/26/17 04:00 Room Air CPAP 07/26/17 00:20 36.8 122 18 109/63 (78) 96 Room Air 07/26/17 00:10 110 97 07/26/17 00:00 Room Air CPAP 07/25/17 21:36 119 18 95 Room Air 07/25/17 19:39 36.6 126 22 107/54 95 Room Air 07/25/17 18:39 128 96/40 96 07/25/17 17:29 131 27 104/41 93 Room Air 07/25/17 15:34 126 22 105/41 93 Room Air 07/25/17 15:18 128 20 90/34 93 Room Air 07/25/17 13:03 126 129/75 94 Room Air 07/25/17 12:08 123 100 Nebulizer 10.0 07/25/17 12:03 119 07/25/17 12:02 115 28 100 Room Air 07/25/17 11:58 96 Room Air 07/25/17 11:13 37.0 126 22 127/82 96 (Maci Gu, PA-C) Physical Exam General Appearance: no apparent distress, + obese Eyes: normal inspection, PERRL ENT: hearing grossly normal Neck: supple Respiratory/Chest: lungs clear, no respiratory distress, no accessory muscle use, + decreased breath sounds (throughout ) Cardiovascular: + tachycardia (regular rhythm ) Abdomen: normal bowel sounds, non tender, soft Extremities: no pedal edema, no calf tenderness Neurologic/Psychiatric: alert, normal mood/affect, oriented x 3 Skin: normal color, warm/dry, no rash (Maci Gu, PA-C) Laboratory Results Last 24 Hours Test 07/25/17 11:55 07/25/17 12:00 07/25/17 20:55 07/25/17 23:00 White Blood Count 8.70 K/uL Red Blood Count 4.54 M/uL Hemoglobin 12.8 g/dL Hematocrit 40.2 % Mean Corpuscular Volume 88.5 fL Mean Corpuscular Hemoglobin 28.2 pg Mean Corpuscular Hemoglobin Concent 31.8 g/dl Platelet Count 312 K/uL Mean Platelet Volume 10.2 fL Neutrophils (%) (Auto) 67.3 % Lymphocytes (%) (Auto) 22.2 % Monocytes (%) (Auto) 7.6 % Eosinophils (%) (Auto) 2.0 % Basophils (%) (Auto) 0.3 % Neutrophils # (Auto) 5.86 K/uL Lymphocytes # (Auto) 1.93 K/uL Monocytes # (Auto) 0.66 K/uL Eosinophils # (Auto) 0.17 K/uL Basophils # (Auto) 0.03 K/uL RDW Standard Deviation 47.9 fL RDW Coefficient of Variation 14.8 % Immature Granulocyte % (Auto) 0.6 % Immature Granulocyte # (Auto) 0.05 K/uL Prothrombin Time 10.0 SECONDS Prothromb Time International Ratio 1.0 Activated Partial Thromboplast Time 28.5 SECONDS Partial Thromboplastin Ratio 1.1 Sodium Level 136 mmol/L Potassium Level 4.0 mmol/L Chloride Level 102 mmol/L Carbon Dioxide Level 26 mmol/L Anion Gap 8.0 mmol/L Blood Urea Nitrogen 13 mg/dl Creatinine 0.84 mg/dl Est Creatinine Clear Calc Drug Dose 148.5 ml/min Estimated GFR () 104.4 Estimated GFR (Non- 90.0 BUN/Creatinine Ratio 15.1 Random Glucose 97 mg/dl Calcium Level 9.1 mg/dl Total Bilirubin 0.3 mg/dl Aspartate Amino Transf (AST/SGOT) 31 U/L Alanine Aminotransferase (ALT/SGPT) 56 U/L Alkaline Phosphatase 130 U/L Troponin I < 0.015 ng/ml Total Protein 7.8 gm/dl Albumin 3.3 gm/dl Globulin 4.5 gm/dl Albumin/Globulin Ratio 0.7 Human Chorionic Gonadotropin, Qual NEG Bedside D-Dimer > 450 ng/mlFEU Influenza Type A Antigen Neg for Influ A Influenza Type B Antigen Neg for Influ B Urine Color DK YELLOW Urine Appearance CLEAR Urine pH 5.0 Urine Specific [place] > 1.045 Urine Protein NEG Urine Glucose (UA) NEG Urine Ketones TRACE Urine Occult Blood NEG Urine Nitrite NEG Urine Bilirubin NEG Urine Urobilinogen NEG Urine Leukocyte Esterase NEG Test 07/26/17 05:21 White Blood Count 7.20 K/uL Red Blood Count 4.16 M/uL Hemoglobin 12.0 g/dL Hematocrit 37.1 % Mean Corpuscular Volume 89.2 fL Mean Corpuscular Hemoglobin 28.8 pg Mean Corpuscular Hemoglobin Concent 32.3 g/dl RDW Standard Deviation 48.7 fL RDW Coefficient of Variation 15.1 % Platelet Count 282 K/uL Mean Platelet Volume 10.3 fL Sodium Level 138 mmol/L Potassium Level 4.4 mmol/L Chloride Level 108 mmol/L Carbon Dioxide Level 24 mmol/L Anion Gap 6.0 mmol/L Blood Urea Nitrogen 13 mg/dl Creatinine 0.62 mg/dl Est Creatinine Clear Calc Drug Dose 201.9 ml/min Estimated GFR () 135.4 Estimated GFR (Non- 116.8 BUN/Creatinine Ratio 20.4 Random Glucose 132 mg/dl Calcium Level 8.3 mg/dl (Maci Gu, [place]) Assessment and Plan 37 y/o female with a history of asthma, anxiety, fibromyalgia, HTN, CELINA, and PCOS who presented to the ED on 07/25 with progressive shortness of breath and cough. Pt arrived afebrile. Tachycardic, tachypneic. BP stable on arrival but then became hypotensive. CXR shows no acute disease. CTA chest negative for PE , no acute disease. EKG no ischemic changes. Positive d-dimer, labs otherwise grossly unremarkable. Pt received loading dose Solu-Medrol 125 mg IV x1, hour long DuoNeb, 1L NSS bolus and azithromycin 500 mg PO in ED. Asthma exacerbation likely secondary to viral illness, h/o mild intermittent asthma: - Admit to tele for cardiac monitoring- no acute events, sinus tach 100-125- will transfer to med/surg - Solu-Medrol 60 mg IV BID - Xopenex/Atrovent nebs QIDR and q2h PRN SOB/wheezing - Magnesium sulfate 2 gm IV on 07/25 - Influenza negative - Delsym PRN for cough - CXR and CT negative for PE or infectious process Recent boil left buttock: Continue Doxycycline 100 mg PO BID- last day of treatment 07/28 h/o anxiety- has not used Ativan for 6 months Fibromyalgia: Continue Amitriptyline 25 mg PO hs h/o HTN- recently taken of Propranolol- BPs STABLE, continue to monitor CELINA: - CPAP HS - Outpatient sleep study scheduled for next week PCOS- STABLE Migraine: Ibuprofen PRN, Imitrex PRN DVT prophylaxis: Enoxaparin 40 mg SC q24h Code Status: LEVEL I, FULL Dispo: Discharge to home once medically stable- no discharge needs identified- hopeful discharge in the next 1-2 days (Maci Gu, PA-C) i personally examined pt and verified all [place] [facility] PAC feeling better just not yet good vitals noted mild labored breathing fatigued appearing asthma exac - improving but still requiring hospital level treatment - stable for med surg. (Paulino Gibson D.O.)
[2017-07-26] MEDS: VITAMIN B COMPLEX TAB PO SCH (21:14)
[2017-07-26] MEDS: AMITRIPTYLINE HCL 25 MG TAB PO SCH (21:14)
[2017-07-26] MEDS: ENOXAPARIN 40 MG/0.4 ML SYR SC SCH (21:15)
[2017-07-27] VITALS (7 sets, daily range): BP systolic 115–160; BP diastolic 67–90; PULSE 89–120; TEMP 36.6–36.8; O2SAT 94–98
[2017-07-27] MEDS: METHYLPREDNISOLONE IV 60 MG in SYRINGE 0 ML IV SCH ×2 (00:11→12:18)
[2017-07-27] MEDS ORDERED: FUROSEMIDE INJ 20 MG in SYRINGE 0 ML IV ONE (01:00)
[2017-07-27 07:05] LABS: HEMATOCRIT 39.2 % (37-47); HEMOGLOBIN 12.5 g/dL (12.0-16.0); MEAN CELL VOLUME 89.5 fL (80-100); MEAN CORPUSCULAR HEMOGLOBIN 28.5 pg (25-34); MEAN CORPUSCULAR HGB CONC 31.9 g/dl (32-36); MEAN PLATELET VOLUME 10.4 fL (7.4-10.4); PLATELET COUNT 324 K/uL (130-400); RED CELL DISTRIBUTION WIDTH SD 48.9 fL (36.4-46.3); WHITE BLOOD COUNT 11.83 K/uL (4.8-10.8)
[2017-07-27 07:36] LABS: CALCIUM 8.9 mg/dl (8.5-10.1); CREATININE 0.68 mg/dl (0.60-1.20); POTASSIUM 4.9 mmol/L (3.5-5.1)
[2017-07-27] MEDS: IPRATROPIUM BROMIDE NEB SOLN 0.02% 2.5 ML VIAL INH SCH ×5 (07:59→23:15)
[2017-07-27] MEDS: LEVALBUTEROL 1.25MG/0.5ML NEB INH SCH ×5 (07:59→23:16)
[2017-07-27] MEDS: CHOLECALCIFEROL 1000 INTER.UNIT TAB PO SCH (09:16)
[2017-07-27] MEDS: DOXYCYCLINE HYCLATE 100 MG CAP PO SCH ×2 (09:16→21:49)
--- NOTE | 2017-07-27 12:06 | Hospitalist Progress Note ---
Hospitalist Progress Note Date of Service Jul 27, 2017. (Maci Gu ., PA-C) Subjective Pt evaluation today including: conversation w/ patient, physical exam, lab review, review of inpatient medication list Voiding: no voiding problems Patient resting in bed. Notes she feels worse than yesterday. Starting to cough up small amounts of dark sputum. Notes periodic wheezing. At times feels SOB and CPAP helps. Complaints of bilateral lower extremity edema last evening. Given IV Lasix x1 at midnight- patient notes she got little sleep due to going the bathroom all night. Eating and drinking OK. Patient denies any fever, chills, sweats, lightheadedness, dizziness, vision changes, CP, palpitations, abdominal pain, nausea, vomiting, diarrhea, urinary symptoms, melena, numbness/tingling, weakness, muscle/joint pain, anxiety/ depression, active bleeding, or new skin discoloration/changes. (Maci Gu ., PA-C) Medications Current Inpatient Medications Medications (Trade) Dose Ordered Sig/Evaristo Route Start Time Stop Time Status Last Admin Dose Admin Enoxaparin Sodium (Lovenox Inj) 40 mg Q24H SC 07/25/17 21:00 08/24/17 20:59 07/26/17 21:15 40 MG Al Hydrox/Mg Hydrox/Simethicone (Maalox Max Susp) 15 ml Q4H PRN PO 07/25/17 17:00 08/24/17 16:59 Magnesium Hydroxide (Milk Of Magnesia Susp) 30 ml Q12H PRN PO 07/25/17 17:00 08/24/17 16:59 Ondansetron HCl (Zofran Inj) 4 mg Q6H PRN IV 07/25/17 17:00 08/24/17 16:59 Polyethylene (Miralax Powder Packet) 17 gm DAILY PRN PO 07/25/17 17:00 08/24/17 16:59 Methylprednisolone Sodium Succinate 60 mg/Syringe 0.96 ml @ 1.5 mls/min Q12H IV 07/26/17 00:00 08/25/17 00:00 07/27/17 00:11 1.5 MLS/MIN Amitriptyline HCl (Elavil Tab) 25 mg QPM PO 07/25/17 21:00 08/24/17 20:59 07/26/17 21:14 25 MG Ibuprofen (Motrin Tab) 800 mg Q8H PRN PO 07/25/17 17:15 08/24/17 17:14 07/26/17 16:35 800 MG Sumatriptan Succinate (Imitrex Tab) 100 mg UD PRN PO 07/25/17 17:15 08/24/17 17:14 Vitamin B Complex (Vitamin B Complex) 1 tab HS PO 07/25/17 21:00 08/24/17 20:59 07/26/17 21:14 1 TAB Cholecalciferol (Vitamin D Tab) 2,000 inter.unit QAM PO 07/26/17 09:00 08/25/17 08:59 07/27/17 09:16 2,000 INTER.UNIT Doxycycline Hyclate (Vibramycin Cap) 100 mg BID PO 07/25/17 21:00 07/28/17 20:59 07/27/17 09:16 100 MG Sodium Chloride 1,000 ml @ 80 mls/hr [id number] IV 07/25/17 20:00 08/24/17 19:59 07/26/17 22:59 80 MLS/HR Ipratropium [place] (Atrovent 0.02% 0.5MG/2.5ML Neb) 0.5 mg QIDR INH 07/25/17 20:00 08/24/17 19:59 07/27/17 11:10 0.5 MG Levalbuterol (Xopenex 1.25MG/ 0.5ML Neb) 1.25 mg QIDR INH 07/25/17 20:00 08/24/17 19:59 07/27/17 11:10 1.25 MG Dextromethorphan Polymer Complex (Delsym Susp) 30 mg Q8H PRN PO 07/25/17 22:00 08/24/17 21:59 07/26/17 22:07 30 MG (Maci Gu PA-C) Objective Vital Signs Date Time Temp Pulse Resp B/P (MAP) Pulse Ox O2 Delivery O2 Flow Rate FiO2 07/27/17 11:11 111 20 96 Room Air 07/27/17 07:35 Room Air CPAP 07/27/17 07:05 36.7 89 19 143/90 (107) 98 CPAP 07/27/17 00:05 Room Air 1/13/18 22:42 36.9 105 24 141/76 (97) 94 CPAP 07/26/17 20:27 112 98 21 07/26/17 20:24 112 24 98 BiPAP/CPAP 21 07/26/17 15:48 115 98 21 07/26/17 15:46 115 18 98 BiPAP/CPAP 21 07/26/17 15:35 Room Air CPAP 07/26/17 15:35 37.1 113 20 158/85 (109) 97 Room Air 07/26/17 15:25 36.9 107 19 96 10.0 (Maci Gu PA-C) Physical Exam General Appearance: no apparent distress, + obese Eyes: normal inspection, PERRL ENT: hearing grossly normal Neck: supple Respiratory/Chest: lungs clear, no respiratory distress, no accessory muscle use, + decreased breath sounds (throughout, but more air movement today ), + pertinent finding (winded while talking ) Cardiovascular: regular rate, rhythm Abdomen: normal bowel sounds, non tender, soft Extremities: no pedal edema, no calf tenderness, + pertinent finding (TEDs on ) Neurologic/Psychiatric: alert, normal mood/affect, oriented x 3 Skin: normal color, warm/dry, no rash (Maci Gu PA-C) Laboratory Results Last 24 Hours Test 07/27/17 06:36 White Blood Count 11.83 K/uL Red Blood Count 4.38 M/uL Hemoglobin 12.5 g/dL Hematocrit 39.2 % Mean Corpuscular Volume 89.5 fL Mean Corpuscular Hemoglobin 28.5 pg Mean Corpuscular Hemoglobin Concent 31.9 g/dl RDW Standard Deviation 48.9 fL RDW Coefficient of Variation 15.0 % Platelet Count 324 K/uL Mean Platelet Volume 10.4 fL Sodium Level 135 mmol/L Potassium Level 4.9 mmol/L Chloride Level 104 mmol/L Carbon Dioxide Level 27 mmol/L Anion Gap 4.0 mmol/L Blood Urea Nitrogen 13 mg/dl Creatinine 0.68 mg/dl Est Creatinine Clear Calc Drug Dose 184.1 ml/min Estimated GFR () 131.3 Estimated GFR (Non- 113.3 BUN/Creatinine Ratio 19.4 Random Glucose 108 mg/dl Calcium Level 8.9 mg/dl (Maci Gu PA-C) Assessment and Plan 37 y/o female with a history of asthma, anxiety, fibromyalgia, HTN, CELINA, and PCOS who presented to the ED on 07/25 with progressive shortness of breath and cough. Pt arrived afebrile. Tachycardic, tachypneic. BP stable on arrival but then became hypotensive. CXR shows no acute disease. CTA chest negative for PE , no acute disease. EKG no ischemic changes. Positive d-dimer, labs otherwise grossly unremarkable. Pt received loading dose Solu-Medrol 125 mg IV x1, hour long DuoNeb, 1L NSS bolus and azithromycin 500 mg PO in ED. Asthma exacerbation likely secondary to viral illness, h/o mild intermittent asthma: - Admit to tele for cardiac monitoring- no acute events, sinus tach 100-125- transferred to med/surg - Solu-Medrol 60 mg IV BID- will continue today and start PO Prednisone tomorrow - Xopenex/Atrovent nebs q4h and q2h PRN SOB/wheezing - On Doxycycline as below - Magnesium sulfate 2 gm IV on 07/25 - Influenza negative - Delsym PRN for cough - CXR and CT negative for PE or infectious process Recent boil left buttock: Continue Doxycycline 100 mg PO BID- last day of treatment 07/28 h/o anxiety- has not used Ativan for 6 months Fibromyalgia: Continue Amitriptyline 25 mg PO hs h/o HTN- recently taken of Propranolol- BPs STABLE, continue to monitor CELINA: - CPAP HS - Outpatient sleep study scheduled for 07/30 PCOS- STABLE Migraine: Ibuprofen PRN, Imitrex PRN DVT prophylaxis: Enoxaparin 40 mg SC q24h Code Status: LEVEL I, FULL Dispo: Discharge to home once medically stable- no discharge needs identified- hopeful discharge in the next 1 day (Maci Gu ., PA-C) i personally examined pt and verified all [place] points w Ac Gu PAC feeling worse but notes it's because she thinks she's moving more air, coughing more bringing up more mucous vitals noted fatigued appearing, lungs better air entry no wheeze asthma exacerbation - improving, continue current care, hopefully home in ~24- 48 w ongoing improvement (Paulino Gibson, DRajeev)
[2017-07-27] MEDS: SODIUM CHLORIDE 0.9% 1000ML 1,000 ML IV SCH ×2 (12:17→22:00)
[2017-07-27] MEDS: VITAMIN B COMPLEX TAB PO SCH (21:49)
[2017-07-27] MEDS: AMITRIPTYLINE HCL 25 MG TAB PO SCH (21:49)
[2017-07-27] MEDS: ENOXAPARIN 40 MG/0.4 ML SYR SC SCH (21:50)
--- NOTE | 2017-07-27 23:12 | Progress Note ---
Progress Note Date of Service Jul 27, 2017. Progress Note patient refusing IVF secondary to nocturia held NSS @ 80cc/h as patient tolerating oral and required dose of lasix 20 mg IV last night for peripheral edema
[2017-07-28] MEDS: METHYLPREDNISOLONE IV 60 MG in SYRINGE 0 ML IV SCH (00:03)
[2017-07-28] MEDS: DEXTROMETHORPHAN POLYMR COMPLX 30 MG/5 ML UDP PO PRN (00:03)
[2017-07-28 01:51] VITALS: PULSE 104; O2SAT 98
[2017-07-28] MEDS: IPRATROPIUM BROMIDE NEB SOLN 0.02% 2.5 ML VIAL INH SCH ×4 (01:51→11:37)
[2017-07-28] MEDS: LEVALBUTEROL 1.25MG/0.5ML NEB INH SCH ×4 (01:51→11:38)
[2017-07-28 06:16] LABS: HEMATOCRIT 39.2 % (37-47); HEMOGLOBIN 12.9 g/dL (12.0-16.0); MEAN CELL VOLUME 88.5 fL (80-100); MEAN CORPUSCULAR HEMOGLOBIN 29.1 pg (25-34); MEAN CORPUSCULAR HGB CONC 32.9 g/dl (32-36); MEAN PLATELET VOLUME 10.4 fL (7.4-10.4); PLATELET COUNT 294 K/uL (130-400); RED CELL DISTRIBUTION WIDTH CV 14.8 % (11.5-14.5); RED CELL DISTRIBUTION WIDTH SD 47.9 fL (36.4-46.3); WHITE BLOOD COUNT 10.83 K/uL (4.8-10.8)
[2017-07-28 06:49] LABS: CREATININE 0.85 mg/dl (0.60-1.20); POTASSIUM 4.7 mmol/L (3.5-5.1)
[2017-07-28 07:17] VITALS: BP 171/77; PULSE 61; TEMP 36.8; O2SAT 92
[2017-07-28 07:20] VITALS: BP 137/74; PULSE 104; TEMP 36.7; O2SAT 95
[2017-07-28 07:38] VITALS: PULSE 103; O2SAT 98
[2017-07-28] MEDS: DOXYCYCLINE HYCLATE 100 MG CAP PO SCH (10:00)
[2017-07-28] MEDS: CHOLECALCIFEROL 1000 INTER.UNIT TAB PO SCH (10:00)
[2017-07-28 11:39] VITALS: PULSE 103; O2SAT 98
[2017-07-28 12:14] VITALS: BP 137/74; PULSE 103; TEMP 36.7; O2SAT 98
[2017-07-28] MEDS ORDERED: FLVHFA44 INH (13:34)
[2017-07-28] MEDS ORDERED: PRD20 PO (13:34)
[2017-07-28] MEDS ORDERED: XPNINS1255 INH (13:34)
--- NOTE | 2017-07-28 13:46 | Discharge Instructions ---
Discharge Instructions Date of Service Jul 28, 2017. Admission Reason for Admission: Asthma Exacerbation Discharge Discharge Diagnosis / Problem: Asthma exacerbation Discharge Goals Goal(s): Decrease discomfort, Improve function, Diagnostic testing, Therapeutic intervention Activity Recommendations Activity Limitations: resume your previous activity . Instructions / Follow-Up Instructions / Follow-Up You were admitted to the hospital with worsening shortness of breath and cough. You were found to have an exacerbation of your previously well controlled asthma, which was likely precipitated by a viral illness. You were treated with nebulizers and IV steroids. As you are now breathing better, you are medically stable for discharge. Medications: *STOP doxycycline. You completed the course while in the hospital. *Please take the following prednisone taper as instructed: -40 mg (2 tablets) by mouth twice a day for 3 days, then -40 mg (2 tablets) by mouth once a day for 2 days, then -20 mg (1 tablet) by mouth once a day for 2 days, then stop. *Please use Flovent (fluticasone) inhaler 2 puffs twice a day. *You may use the Xopenex (levalbuterol) nebulizer up to every 6 hours as needed for shortness of breath and/or wheezing. *Continue your other home medications as prescribed. Follow up: *You will be scheduled to follow up with your primary care provider following discharge. Please seek medical attention if you experience fevers, chills, sweats, dizziness/lightheadedness, loss of consciousness, chest pain, shortness of breath, nausea, vomiting, numbness or tingling. Current Hospital Diet Patient's current hospital diet: AHA Diet (Heart Healthy) Discharge Diet Recommended Diet: AHA Diet (Heart Healthy) Pending Studies Studies pending at discharge: no Medical Emergencies . Who to Call and When: Medical Emergencies: If at any time you feel your situation is an emergency, please call 911 immediately. . Non-Emergent Contact Non-Emergency issues call your: Primary Care Provider . . "Provider Documentation" section prepared by Brittany Kuo. . VTE Core Measure Inpt VTE Proph given/why not?: Enoxaparin (Lovenox)KASSIE, TSegundoEMarcelina Granados, SCD's
--- NOTE | 2017-07-28 14:08 | Discharge Summary ---
Discharge Summary Date of Service Jul 28, 2017. Discharge Summary Admission Date: Jul 25, 2017 at 17:01 Discharge Date: Jul 28, 2017 Discharge Disposition: Home Principal Diagnosis: Asthma exacerbation Problems/Secondary Diagnoses: Anxiety, fibromyalgia, HTN, CELINA, PCOS Immunizations: Have You Had Influenza Vaccine: Unknown History of Tetanus Vaccine?: Unknown Procedures: [~ rep ct add3]] CHEST ONE VIEW PORTABLE CLINICAL HISTORY: EVALUATE RESPIRATORY DISTRESS.DYSPNEA COMPARISON STUDY: Chest CT October 29, 2016 and chest radiograph November 06, 2016. FINDINGS: Lung volumes are normal. There is no pneumothorax or pleural effusion. Interstitial prominence is unchanged. Cardiomediastinal silhouette is stable. There is no evidence for pulmonary edema. IMPRESSION: No acute cardiopulmonary findings. No change in appearance of the chest. (CHEST FOR PE) ANGIO WITH CT DOSE: 574.63 mGy.cm HISTORY: Chest pain dyspnea TECHNIQUE: Multiaxial CT images of the chest were performed following the intravenous administration of contrast to evaluate the pulmonary arteries. Maximal intensity projection images were also obtained. A dose lowering technique was utilized adhering to the principles of ALARA. COMPARISON STUDY: 10/29/2016 FINDINGS: Compromised exam due to patient body habitus, subsequent lack of resolution, and moderate patient motion. Thoracic aorta is normal in course and caliber. Central pulmonary vasculature enhances appropriately. There are no major central pulmonary emboli. The third order peripheral vasculature is suboptimally identified and is essentially nondiagnostic. Lungs are considered clear. There are no focal infiltrative changes. No evidence for pneumothorax. IMPRESSION: 1. No evidence for a major or central pulmonary embolus. 2. Lungs are clear. 3. The peripheral pulmonary vasculature is suboptimally seen due to patient body habitus and somatic motion considerations. Medication Reconciliation New Medications: Fluticasone Propionate (Flovent Hfa) 120 Puffs/5280 Mcg Aero 2 PUFFS INH BID for 30 Days, #1 INHALER Levalbuterol (Levalbuterol) 1.25 Mg/0.5 Ml Nebu 1.25 MG INH Q6H PRN for SOB/Wheezing for 30 Days, #120 DOSE Prednisone (Prednisone) 20 Mg Tab 40 MG PO UD for 7 Days, #18 TAB 40 mg (2 tabs) twice daily for 3 days, then 40 mg (2 tabs) once daily for 2 days, then 20 mg (1 tab) once daily for 2 days Continued Medications: Albuterol Hfa (Ventolin Hfa) 200 Puffs/29429 Mcg Aers 2 PUFFS INH Q4-6HRS PRN for SOB/Wheezing Amitriptyline HCl (Amitriptyline HCl) 25 Mg Tab 25 MG PO QPM B Complex W/ C (Vitamin B Complex-C) 1 Cap Cap 1 CAP PO QPM Cholecalciferol (Vitamin D3) 2,000 Unit Cap 2000 UNITS PO DAILY for 30 Days, CAP 3 Refills Ibuprofen (Motrin) 800 Mg Tab 800 MG PO Q8H PRN for Pain, TAB Magnesium Oxide (mg Supplement (Magnesium Oxide) 500 Mg Tab 500 MG PO QPM Polyethylene Glycol 3350 (Miralax) 1 Pow Pow 17 GM PO DAILY PRN for Constipation, GM Sumatriptan Succinate (Imitrex) 100 Mg Tab 100 MG PO UD PRN for Migraine TAKE ONE TABLET AT ONSET OF MIGRAINE, IF NEEDED MAY REPEAT HALF A TABLET (50 MG) AFTER 2 HOURS. MAXIMUM 200 MG/24 HOURS Discontinued Medications: Doxycycline Hyclate (Doxycycline Hyclate) 100 Mg Tab 1 TAB PO BID for 10 Days, #20 TAB Discharge Exam Patient reports feeling well and is eager for discharge. She denies any shortness of breath or wheezing. She still has a cough, but it is better and nonproductive. She states she was able to sleep well last night. The patient denies fevers, chills, sweats, chest pain, palpitations, claudication, wheezing , shortness of breath, nausea, vomiting, abdominal pain, dysuria, hematuria, urinary retention, paralysis, weakness, numbness and tingling. Constitutional: No fever, No chills, No sweats Eyes: No worsening of vision, No eye pain, No diplopia ENT: No hearing loss, No nasal symptoms, No trouble swallowing Respiratory: +Cough. No wheezing, No shortness of breath Cardiovascular: No chest pain, No claudication, No palpitations Abdomen: No pain, No nausea, No vomiting Musculoskeletal: No joint pain, No muscle pain, No swelling Genitourinary - Female: No dysuria, No urinary retention, No hematuria Neurologic: No paralysis, No weakness, No numbness/tingling Integumentary: No rash, No itch, No color change General appearance: +Morbidly obese. Well-developed, well-nourished, no apparent distress Head: Normocephalic, atraumatic Eyes: Normal inspection, PERRL, EOMI ENT: Normal ENT inspection, hearing grossly normal, pharynx normal Neck: Supple, no JVD, trachea midline Respiratory/Chest: +Very mildly decreased breath sounds, air movement much improved. Lungs clear to auscultation, no respiratory distress Cardiovascular: +Mildly tachycardic. Regular rhythm, no gallop, no murmur Abdomen/GI: Normal bowel sounds, non-tender, soft Extremities/Musculoskeletal: Normal inspection, no calf tenderness, no pedal edema Neurological/Psych: Alert, normal mood/affect, oriented x 3 Skin: Normal color, warm/dry, no rash Hospital Course 37 y/o female with a history of asthma, anxiety, fibromyalgia, HTN, CELINA, and PCOS who presented to the ED on 07/25 with progressive shortness of breath and cough. Pt arrived afebrile. Tachycardic, tachypneic. BP stable on arrival but then became hypotensive. CXR shows no acute disease. CTA chest negative for PE, no acute disease. EKG no ischemic changes. Positive d-dimer, labs otherwise grossly unremarkable. Pt received loading dose Solu-Medrol 125 mg IV x1, hour long DuoNeb, 1L NSS bolus and azithromycin 500 mg PO in ED. Asthma exacerbation, h/o mild intermittent asthma--resolving. Likely caused by recent viral illness -Admit to telemetry given tachycardia and hypotension. Hypotension resolved, moved to med/surg -D/C with Prednisone taper: 40 mg PO BID x 3 days, then 40 mg PO qd x 2 days, then 20 mg PO x 2 days then stop -Xopenex/Atrovent nebs QIDR and q2h prn SOB/wheezing. D/C with Xopenex nebs q6h prn SOB/wheezing. 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 Notes increasing daytime fatigue and has outpt sleep study scheduled -CPAP at night. Pt has CPAP machine already, sleep study on 07/30 to determine settings PCOS--stable, no recent issues Migraine -Ibuprofen prn, Imitrex prn DVT prophylaxis -Enoxaparin 40 mg SC q24h -YVAN Elkins Code Status -Level I, FULL RESUSCITATION STATUS Total Time Spent: Greater than 30 minutes This includes examination of the patient, discharge planning, medication reconciliation, and communication with other providers. Discharge Instructions Please refer to the electronic Patient Visit Report (Discharge Instructions) for additional information. Additional Copies To Catrina Braswell M.D.
== END 2017-07-28 14:05 | disposition home or self-care (01) | DRG 203 ==
LOC: C.EDB 11:07 → C.2T 17:01 → ENRESERV 18:24 → C.MSN 07-26 15:39
PROVIDERS: ADMIT Family Medicine; ATTEND Hospitalist
DX: J45.901 Unspecified asthma with (acute) exacerbation (principal); J20.9 Acute bronchitis, unspecified; F41.9 Anxiety disorder, unspecified; I10 Essential (primary) hypertension; F32.9 Major depressive disorder, single episode, unspecified; E78.5 Hyperlipidemia, unspecified; K58.9 Irritable bowel syndrome, unspecified; F17.200 Nicotine dependence, unspecified, uncomplicated; R00.0 Tachycardia, unspecified; M79.7 Fibromyalgia; G43.909 Migraine, unspecified, not intractable, without status migrainosus; Z80.9 Family history of malignant neoplasm, unspecified

== ENCOUNTER → 2017-08-13 | Outpatient (CLI) | payer OTHER ==
[~2017-08-13] MED LIST changes: -ATV/1 SL; -BSP/5 PO; -CALC-585 PO; -DOCU-94 PO; -DOXY1TAB6 PO; +FLVHFA44 INH; -FLX10 PO; -FURO20TA PO; -GABA1CAP4 PO; -GUAI1TAB55 PO; -OXYC1TAB3 PO; +PRD20 PO; -PROP60CA PO; +XPNINS1255 INH
--- NOTE | 2017-08-14 06:34 | SPLIT NIGHT TECHNICIAN REPORT ---
[facility] Split Night Polysomnogram - Aged Or Disabled Carer Report Study date: 08/13/2017 Referring Physician: Bruce Albarran M.D. Name: TU STANLEY Aged Or Disabled Carer: Britt[facility] Sh[facility] Date of : 1980 Height: 37 years, Height 5' 5" Sex: Female Weight: 363 lbs Age: 37 Neck Circum: 17.5 in BMI: Medications: 60.4 AMITRIPTYLINE 25 MG, VIT B COMPLEX, CALCIUM 600+D, CHANTIX 1 MG, COLACE 100 MG, CYCLOBENZAPRINE 10 MG, FUROSEMIDE 20 MG, LORAZEPAM 0.5 MG, MAGNESIUM OXIDE 400 MG, NORETHINDRONE 0.35 MG, OXYCODONE 5 MG, POTASSIUM CHLORIDE 20 MEQ, PROAIR HFA, PROPRANOLOL 60 MG, SUMATRIPTAN 100 MG, VIT D 2000 UNIT, VOLTAREN 1% GEL Patient History 37 yr-old female here for a baseline/split study. She has had previous sleep testing. She was found to be positive for mild CELINA and started CPAP during a . After a weight loss her symptoms abated, and she stopped using CPAP. She has since then experienced weight gain and daytime sleepiness and snoring has returned. Her Columbia scale is 13. The test was started on room air. ETCO2 testing is included in this study. Room 3 Parameters Monitored NPSG: E1-M2, E2-M1, Fp1-M2, Fp2-M1, F3-M2, F4-M2, F4-M1, C3-M2, C4-M2, C4-M1, O1-M2, O2-M2, O2-M1, T3-M2, T4-M1, P3-M2, P4-M1, CHIN1, CHIN2, HR, EKG, Legs, PFLOW, SNOR, FLOW, CFLOW, Tidal Volume, THOR, ABDO, SpO2, PLTH, CPRESS, ETCO2 Wave, ETCO2, pH SLEEP SUMMARY DATA DIAGNOSTIC TREATMENT Lights Out: 10:39:22 PM 1:05:52 AM Lights On: 12:55:52 AM 5:29:52 AM Total Recording Time (TRT): 136.5 min. 264.0 min. Total Sleep Time (TST): 78.0 min. 242.5 min. NREM Time: 78.0 min. 176.0 min. REM Time: 0.0 min. 66.5 min. Sleep Period Time (SPT): 96.0 min. 259.0 min. Sleep Efficiency (SE): 57 % 92 % Sleep Latency: 40.5 min. 5.0 min. Arousal Index: 23.8 5.4 PAP Treatment Levels: 7, 8, 10, 12, 13 * Optimal Pressure(s) SLEEP STAGING DATA DIAGNOSTIC TREATMENT Duration (min) TST % Duration (min) TST % Stage Wake: 58.5 min. -- 21.5 min. -- WASO: 18.0 min. -- 16.5 min. -- NREM: 78.0 min. 100 % 176.0 min. 73 % Stage N1: 17.0 min. 22 % 12.5 min. 5 % Stage N2: 61.0 min. 78 % 150.0 min. 62 % Stage N3: 0.0 min. 0 % 13.5 min. 6 % REM: 0.0 min. 0 % 66.5 min. 27 % POSITIONAL DATA Event Count Index Event Count Index Supine: 37 116.8 48 11.9 Supine NREM: 37 116.8 20 6.8 Supine REM: N/A N/A 28 25 Non-Supine: 24 24.4 N/A N/A Non-Supine NREM: 24 24.4 N/A N/A Non-Supine REM: N/A N/A N/A N/A AROUSAL SUMMARY DATA: Event Count Index Event Count Index Apnea Arousals: 0 0.8 0 1.0 Hypopnea Arousals: 6 4.6 8 2.0 Snore Arousals: 5 3.8 5 1.2 PLM Arousals: 4 3.1 0 0.0 Non-Specific Arousals: 10 7.7 9 2.2 Total Arousals: 31 23.8 22 5.4 MYOCLONUS (PLM) Event Count Index Event Count Index PLM: 20 15.4 0 0.0 PLM AROUSAL: 4 3.1 0 0.0 PLM W/O AROUSAL 20 15.4 0 0.0 PLM W/RESP EVENT 2 0.0 0 0.0 MYOCLONUS (PLM) Event Count Index Event Count Index LM: 6 20.0 13 3.2 LM AROUSAL: 6 4.6 1 0.2 LM W/O AROUSAL LM W/RESP EVENT LM NON SPECIFIC 29 22.3 8 2.0 HEART RATE DATA DIAGNOSTIC TREATMENT Sleep (bpm): 118 102 REM (bpm): N/A 88 NREM (bpm): 89 90 Tachycardia Count: 0 0 Tachycardia Duration: 0.00 0 Bradycardia Count: 0 0 Bradycardia Duration: 0.00 0 DIAGNOSTIC PORTION TREATMENT PORTION RESPIRATORY DATA Event Count Index Event Count Index AHI: -- 46.9 -- 11.9 RDI: -- 46.9 -- 12 Obstructive Apnea: 1 0.8 4 1.0 Central Apnea: 0 0.0 0 0.0 Mixed Apnea: 0 0.0 0 0.0 Hypopnea: 60 46.2 44 10.9 RERA: 0 0.0 0 0.0 Total Apneas: 1 0.8 4 1.0 RESPIRATORY DATA REM NREM SLEEP REM NREM SLEEP Supine Position: Obstructive Apneas: N/A 1 1 1 3 4 Central Apneas: N/A 0 0 0 0 0 Mixed Apneas: N/A 0 0 0 0 0 Hypopneas: N/A 36 36 27 17 44 RERA N/A 0 0 0 0 0 Total Supine Events: N/A 37 37 28 20 48 Supine AHI: N/A 116.8 116.8 25 6.8 11.9 Supine RDI: N/A 116.8 116.8 25.3 6.8 11.9 REM NREM SLEEP REM NREM SLEEP Non-Supine Position: Obstructive Apneas: N/A 0 0 N/A N/A N/A Central Apneas: N/A 0 0 N/A N/A N/A Mixed Apneas: N/A 0 0 N/A N/A N/A Hypopneas: N/A 24 24 N/A N/A N/A RERA N/A 0 0 N/A N/A N/A Total Supine Events: N/A 24 24 N/A N/A N/A Supine AHI: N/A 24.4 24.4 N/A N/A N/A Supine RDI: N/A 24.4 24.4 N/A N/A N/A OXYGEN DESTAURATION DATA: Event Count Index Event Count Index REM Desaturations: N/A N/A 58 52.3 NREM Desaturations: 115 88.5 45 15.3 SNORE DATA DIAGNOSTIC TREATMENT Snore Time: 26.0 1:10:52 AM Snore TST%: 10 19 Snore Arousal Count: 5 5 Snore Arousal Index: 3.8 1.2 Desaturation Event Summary: Minimum %SpO2 Event Count Mean/Min/Max Duration(sec.) Desaturation Index % Time In Bed > 90 225 15.0 / 4.0 / 60.0 90.5 37.8 86 - 90 124 13.5 / 4.3 / 54.5 32.6 57.8 81 - 85 5 13.5 / 6.0 / 32.0 26.7 2.9 76 - 80 3 15.3 / 7.0 / 31.0 74.9 0.6 71 - 75 4 10.1 / 4.5 / 15.0 132.7 0.5 66 - 70 4 11.1 / 7.5 / 15.0 167.0 0.4 61 - 65 0 N/A 0.0 0.1 56 - 60 0 N/A 0.0 0.0 51 - 55 0 N/A 0.0 0.0 < 50 0 N/A 0.0 0.0 OXYGEN SATURATION DATA DIAGNOSTIC TREATMENT SpO2 Mean Sleep: 89 % 89 % SpO2 Mean REM: N/A % 88 % SpO2 Mean NREM: 89 % 90 % SpO2 Minimum Sleep: 81 % 64 % SpO2 Minimum REM: N/A % 64 % SpO2 Minimum NREM: 81 % 83 % Time Below 90% (TST): 54.7 96.5 Time Below 88% (TST): 25.7 38.9 Total REM NREM Awake <50% 0.0 min. 0.0 min. 0.0 min. 0.0 min. 51 - 60% 0.0 min. 0.0 min. 0.0 min. 0.0 min. 61 - 70% 1.8 min. 1.8 min. 0.0 min. 0.0 min. 71 - 80% 4.2 min. 4.2 min. 0.0 min. 0.0 min. 81 - 90% 239.4 min. 45.0 min. 174.0 min. 20.4 min. 91 - 100% 149.1 min. 15.6 min. 80.0 min. 53.6 min. Average 90 88 90 92 Minimum SpO2 64 64 81 82 Desaturation Event Index 40.4 52.3 37.8 39.8 # Desat. Events below 89% 219 57 135 27 Time(%) with Saturation below 89% 28.4 7.9 19.3 1.2 Time(min.) with Saturation below 89% 111.9 31.0 76.2 4.6 Recording Aged Or Disabled Carer Comments: Ms. Stanley slept in the right and supine positions. No cardiac arrhythmias or PLMs noted. No bruxism noted. Snoring was noted and scored as a 3 on a scale of 1 through 5. (0=no snoring, 5=snoring loud enough to be heard through a closed door or down the [address]omez way). At 1:05, she met specific Split-Night criteria during the diagnostic portion of this study. CPAP was initiated at +7 CMH2O (per the doctor's notes) and up-titrated to a level of +13 CMH2O, Cflex 3. A Quattro Air full face mask size small from [employer] was used during titration. She awoke to use the restroom one time during the night. Ms. Stanley stated that she slept better than usual. The final report will be interpreted and signed by a sleep physician. The completed physician report will then be placed in the patient medical record. Therapy Event: Therapy (cm H20) 0 7 8 10 12 13 Total Time at Pressure (min.) 136.5 32.7 64.7 23.1 84.4 59.2 TST at Pressure (min.) 78.0 26.7 64.7 23.1 68.9 59.2 # Periods 1 1 1 1 1 1 Sleep Onset (min.) 40.5 5.0 0.0 0.0 0.0 0.0 REM Onset (min.) N/A N/A 58.8 0.0 0.0 23.2 Sleep Efficiency % 57 81 100 100 81 100 Wakefulness (%) 42.9 18.4 0.0 0.0 18.4 0.0 Wakefulness (min.) 58.5 6.0 0.0 0.0 15.5 0.0 NREM 1 (%) 12.5 13.8 0.0 0.0 7.7 2.5 NREM 1 (min.) 17.0 4.5 0.0 0.0 6.5 1.5 NREM 2 (%) 44.7 67.8 70.0 0.0 70.3 39.1 NREM 2 (min.) 61.0 22.2 45.3 0.0 59.3 23.2 NREM 3 (%) 0.0 0.0 20.8 0.0 0.0 0.0 NREM 3 (min.) 0.0 0.0 13.5 0.0 0.0 0.0 REM (%) 0.0 0.0 9.1 100.0 3.6 58.3 REM (min.) 0.0 0.0 5.9 23.1 3.0 34.5 # Arousals 31 7 4 1 8 2 Arousal Index 23.8 15.8 3.7 2.6 7.0 2.0 # Snore 923 460 656 150 292 352 Snore Index 710.0 1,035.4 607.9 390.0 254.4 357.0 AHI 46.9 13.5 12.0 49.4 7.0 2.0 AHI Supine 116.8 13.5 12.0 49.4 7.0 2.0 AHI Non-Supine 24.4 N/A N/A N/A N/A N/A NREM AHI 46.9 13.5 6.1 N/A 7.3 0.0 REM AHI N/A N/A 71.1 49.4 0.0 3.5 RDI 46.9 13.5 12.0 49.4 7.0 2.0 # Obstructive 1 0 4 0 0 0 # Central Ap 0 0 0 0 0 0 # Mixed 0 0 0 0 0 0 # Hypopneas 60 6 9 19 8 2 RERAS 0 0 0 0 0 0 Total Respiratory Events 61 6 13 19 8 2 Time Below SpO2 89.00% (min.) 45.0 0.6 4.8 12.0 29.8 14.9 Mean NREM SpO2 (%) 89 91 90 N/A 89 90 Mean REM SpO2 (%) N/A N/A 81 87 91 89 Mean Sleep SpO2 (%) 89 91 89 87 89 90 Min NREM SpO2 (%) 81 85 83 N/A 83 85 Min REM SpO2 (%) N/A N/A 64 64 78 83 Position Supine (min.) 19.0 26.7 64.7 23.1 68.9 59.2 Position Non-supine (min.) 59.0 0.0 0.0 0.0 0.0 0.0 LM Index Sleep 35.4 4.5 4.6 2.6 1.7 3.0 LM Index NREM 35.4 4.5 3.1 N/A 1.8 0.0 LM Index REM N/A N/A 20.3 2.6 0.0 5.2 Mean Heart Rate (bpm) 118 115 110 99 99 93 Min Heart Rate (bpm) 108 107 88 84 83 78 CPAP REPORT Therapy Detail Time / Page # Comment CPAP 7 cm H2O Full Face Mask Flex Pressure Relief Humidifier on 1:05:18 AM / pg. 415 SHE HAS NOT SLEPT FOR OVER 2 HOURS BUT PER DOCTOR'S ORDER THE TEST HAS RUN FOR OVER 2 HOURS. HER AHI IS ABOVE 5 (ALSO PER DOCTOR'S ORDER). STARTING CPAP AT 7 CM (PER DOCTOR'S ORDER CPAP 8 cm H2O Full Face Mask Flex Pressure Relief Humidifier on 1:38:31 AM / pg. 482 INCREASED FOR SNORING AND HYPOPNEAS CPAP 10 cm H2O Full Face Mask Flex Pressure Relief Humidifier on 2:43:16 AM / pg. 611 INCREASED FOR APNEAS AND HYPOPNEAS CPAP 12 cm H2O Full Face Mask Flex Pressure Relief Humidifier on 3:06:21 AM / pg. 657 INCREASED FOR HYPOPNEAS IN REM CPAP 13 cm H2O Full Face Mask Flex Pressure Relief Humidifier on 4:30:42 AM / pg. 826 INCREASED FOR MORE HYPOPNEAS
--- NOTE | 2017-08-14 13:43 | POLYSOMNOGRAPH REPORT ---
CLINICAL DATA: A 37-year-old female with a BMI of 60, referred by Dr. Apodaca, Dr. Braswell and myself for a split night sleep study. She had mild sleep apnea during and was started on CPAP. After weight loss, her symptoms improved; however, she has gained weight back and has daytime sleepiness and snoring. This was a split night study. SLEEP ARCHITECTURE: For the diagnostic portion of this study, total sleep period was 96 minutes. Total sleep time was 78 minutes all non-REM sleep. Sleep efficiency was 57%. Sleep latency was 40.5 minutes. Sleep consisted of stage N1 22% and stage N2 78%. For the treatment portion of the study, sleep period time was 259 minutes. Total sleep time was 242.5 minutes divided between 176 minutes of non-REM sleep and 66.5 minutes of REM sleep. Sleep latency was 5 minutes. Sleep efficiency was 92%. Sleep consisted of stage N1 5%, stage N2 62%, stage N3 6%, and REM 27%. AROUSAL DATA: Prior to treatment, 31 arousals were recorded for an index of 23.8 per hour. During treatment, 22 arousals were recorded for an index of 5.4 per hour. PERIODIC LIMB MOVEMENT DATA: Prior to treatment, 29 limb movements during sleep were noted for an index of 22.3 per hour. During treatment, 13 limb movements during sleep were noted for an index of 3.2 per hour. RESPIRATORY DATA: Severe sleep apnea was documented prior to treatment. The diagnostic AHI was 47. There was 1 obstructive apneic episode and 60 hypopneic episodes recorded. The average AHI during treatment was 11.9. There were 4 obstructive apneic episodes and 44 hypopneic episodes. OXIMETRY DATA: Nocturnal hypoxemia was seen. Oxygen megha was 64% during REM sleep, mean saturation during treatment was 89%. DATA: EKG: Heart rates ranged from 88-118 beats per minute. No arrhythmias were noted. ANDROID ARCHITECT'S COMMENTS AND TREATMENT SUMMARY: The patient slept in the right and supine positions. Snoring was moderate, rated 3 on a scale of 1-5. At 1:05 a.m., she met split night criteria. A Quattro Air full facemask size small from [employer] was used. The patient was titrated from 7 cm of water pressure up to 13 cm of water pressure, C-Flex setting 3. At her final pressure setting, she slept for 59 minutes with an AHI of 2. IMPRESSION: Severe sleep apnea/hypopnea with nocturnal hypoxemia with a diagnostic apnea/hypopnea index of 47, corrected with CPAP 13 cm of water pressure, C-Flex settings 3, using a Quattro Air full facemask size small from [employer]. RECOMMENDATIONS: The patient should be seen back in followup to be started on CPAP at the above noted pressure settings. [place]
== END | disposition home or self-care (01) ==
LOC: C.NEUR 21:00
PROVIDERS: ATTEND Internal Medicine Pulmonary Disease
DX: G47.33 Obstructive sleep apnea (adult) (pediatric) (principal); G47.19 Other hypersomnia; R53.83 Other fatigue; E66.01 Morbid (severe) obesity due to excess calories; Z68.44 Body mass index [BMI] 60.0-69.9, adult